=== PATIENT | male | born 1960 | race Caucasian/White ===

== ENCOUNTER 2021-06-11 07:19 | Outpatient (REF) | payer OTHER, SELFPAY ==
--- NOTE | ~2021-06-11 | XR_ITS ---
EXAMINATION: AP PELVIS AND RIGHT HIP. CLINICAL INFORMATION: Right hip pain. COMPARISON: None TECHNIQUE: AP pelvis. 2 views right hip. FINDINGS: PELVIS: There is a normal left hip joint space without bony erosive changes. There is mild periarticular spurring medial and laterally. There is severe loss of right hip joint space with bone on bone apposition and sclerosis with periarticular spurring. RIGHT HIP: AP and frog-leg views reveal moderate lateral periarticular spurring with sclerosis and mild subchondral cystic changes. There is severe loss of right hip joint space with mild flattening of the right anterolateral femoral head. No fracture identified. There is no dislocation. XR/XR pelvis 1-2V IMPRESSION: Severe right hip degenerative arthritic changes with subchondral cystic changes and sclerosis. There is periarticular spurring left hip joint space without bony erosive changes. The joint space is somewhat maintained, normal. There is no visible acute fracture or dislocation involving the AP pelvis. The SI joints are symmetrical.
--- NOTE | ~2021-06-11 | XR_ITS ---
EXAMINATION: AP PELVIS AND RIGHT HIP. CLINICAL INFORMATION: Right hip pain. COMPARISON: None TECHNIQUE: AP pelvis. 2 views right hip. FINDINGS: PELVIS: There is a normal left hip joint space without bony erosive changes. There is mild periarticular spurring medial and laterally. There is severe loss of right hip joint space with bone on bone apposition and sclerosis with periarticular spurring. RIGHT HIP: AP and frog-leg views reveal moderate lateral periarticular spurring with sclerosis and mild subchondral cystic changes. There is severe loss of right hip joint space with mild flattening of the right anterolateral femoral head. No fracture identified. There is no dislocation. XR/XR hip RT min 2V IMPRESSION: Severe right hip degenerative arthritic changes with subchondral cystic changes and sclerosis. There is periarticular spurring left hip joint space without bony erosive changes. The joint space is somewhat maintained, normal. There is no visible acute fracture or dislocation involving the AP pelvis. The SI joints are symmetrical.
== END 2021-06-11 07:20 | disposition home or self-care (01) ==
LOC: HO.HOSX 07:19
PROVIDERS: Visit Provider Physician Assistant
DX: M16.11 Unilateral primary osteoarthritis, right hip (principal)
CPT/HCPCS: 72170; 73502

== ENCOUNTER 2021-06-27 15:18 | Outpatient (REF) | payer OTHER, SELFPAY | END 2021-06-27 15:19 | disposition home or self-care (01) | LOC: HO.CT 15:18 | PROVIDERS: PCP Physician Assistant; Visit Provider Physician Assistant Medical | DX: Z13.89 Encounter for screening for other disorder (principal) ==

== ENCOUNTER 2021-10-03 13:54 | Outpatient (REF) | payer OTHER, SELFPAY ==
[2021-10-03 14:13] LABS: MANUAL DIFF FLAG NO
[2021-10-03 14:28] LABS: Basophils Percent Auto 0.4 % (0-2); Eosinophils Absolute Auto 0.2 X10*3/uL (0.0-0.4); Eosinophils Percent Auto 3.5 % (0-4); Hematocrit 43.3 % (42.0-52.0); Hemoglobin 15.4 g/dl (14.0-18.0); Imm Gran Abs Auto 0.02 X10*3/uL (0.00-0.03); Imm Gran Pct Auto 0.4 % (0.0-0.4); Lymphocytes Absolute Auto 1.6 X10*3/uL (1.2-4.9); Lymphocytes Percent Auto 27.7 % (20-40); Mean Corpuscular HGB Conc 35.6 g/dl (31.0-36.0); Mean Corpuscular Hemoglobin 32.2 pg (27.0-33.0); Mean Corpuscular Volume 90.6 fL (80.0-98.0); Mean Platelet Volume 10.2 fL (9.4-12.4); Monocytes Absolute Auto 0.6 X10*3/uL (0.1-1.2); Monocytes Percent Auto 10.5 % (2-11); Neutrophils Absolute Auto 3.3 x10*3/uL (2.0-8.3); Neutrophils Percent Auto 57.5 % (45-73); Platelet Count 153 X10*3/uL (160-400); Red Blood Count 4.78 X10*6/uL (4.60-5.80); Red Cell Distribution Width 12.7 % (11.0-16.0); White Blood Count 5.6 X10*3/uL (4.8-10.8)
[2021-10-03 14:44] LABS: Estimated Average Glucose 103 mg/dL; Hemoglobin A1c % 5.2 %
[2021-10-03 15:02] LABS: Alanine Aminotransferase 21 U/L (0-40); Albumin Level 4.4 g/dL (3.5-5.0); Alkaline Phosphatase 55 U/L (39-117); Anion Gap 14 (12-20); Aspartate Amino Transferase 19 U/L (5-37); Bilirubin Total 0.8 mg/dL (0.0-1.0); Blood Urea Nitrogen 11 mg/dL (9-16); Calcium 9.4 mg/dL (8.4-10.2); Carbon Dioxide 27 mmol/L (22-29); Chloride 102 mmol/L (96-108); Cholesterol 181 mg/dL; Estimated Glomerular Filt Rate > 60; Glucose Fasting 110 mg/dL (60-99); HDL Cholesterol 36 mg/dL; LDL Cholesterol Calculated 108 mg/dl; Potassium 4.6 mmol/L (3.3-5.1); Sodium 138 mmol/L (135-145); Total Protein 7.1 g/dL (6.5-8.0); Triglycerides 185 mg/dL
[2021-10-03 15:23] LABS: TSH reflex Free T4 0.91 uIU/mL (0.32-4.0)
== END 2021-10-03 13:55 | disposition home or self-care (01) ==
LOC: HO.LAB 13:54
PROVIDERS: PCP Physician Assistant; Visit Provider Physician Assistant
DX: I10 Essential (primary) hypertension (principal); I48.91 Unspecified atrial fibrillation
CPT/HCPCS: 36415; 80053; 80061; 83036; 84443; 85025

== ENCOUNTER 2022-02-09 12:47 | Outpatient (REF) | payer OTHER, SELFPAY | END 2022-02-09 12:48 | disposition home or self-care (01) | LOC: HO.LAB 12:47 | PROVIDERS: PCP Physician Assistant; Visit Provider Physician Assistant | DX: Z13.89 Encounter for screening for other disorder (principal) ==

== ENCOUNTER 2022-02-10 13:03 | Outpatient (REF) | payer OTHER, SELFPAY ==
[2022-02-10 14:50] LABS: Microalbumin Urine < 5.0 mg/L
== END 2022-02-10 13:04 | disposition home or self-care (01) ==
LOC: HO.LAB 13:03
PROVIDERS: PCP Physician Assistant; Visit Provider Physician Assistant
DX: I10 Essential (primary) hypertension (principal)
CPT/HCPCS: 82043

== ENCOUNTER 2022-05-05 14:47 | Outpatient (REF) | payer OTHER, SELFPAY ==
[2022-05-09 00:39] LABS: Cotinine, U <2 ng/mL; Nicotine, U <2 ng/mL
== END 2022-05-05 14:48 | disposition home or self-care (01) ==
LOC: HO.LAB 14:47
PROVIDERS: PCP Physician Assistant; Visit Provider Physician Assistant
DX: Z87.891 Personal history of nicotine dependence (principal)
CPT/HCPCS: 80323

== ENCOUNTER 2022-09-08 11:18 | Outpatient (REF) | payer OTHER, SELFPAY ==
--- NOTE | 2022-09-08 11:28 | ECG_ITS ---
Test Reason : HX AFIB Blood Pressure : / mmHG Vent. Rate : 120 BPM Atrial Rate : 000 BPM P-R Int : 000 ms QRS Dur : 082 ms QT Int : 288 ms P-R-T Axes : 000 -77 020 degrees QTc Int : 407 ms Atrial fibrillation with rapid ventricular response with premature ventricular or aberrantly conducted complexes Left axis deviation Nonspecific ST and T wave abnormality Abnormal ECG When compared with ECG of 31-MAR-2017 12:38, Atrial fibrillation has replaced Sinus rhythm Vent. rate has increased BY 40 BPM T wave inversion no longer evident in Lateral leads Referred By: Zainab Quiles Electronically Signed By:Zen Lazo
[2022-09-08 11:31] LABS: MANUAL DIFF FLAG NO
[2022-09-08 11:51] LABS: Basophils Percent Auto 0.3 % (0-2); Eosinophils Absolute Auto 0.2 X10*3/uL (0.0-0.4); Eosinophils Percent Auto 3.9 % (0-4); Hematocrit 44.8 % (42.0-52.0); Hemoglobin 15.8 g/dl (14.0-18.0); Imm Gran Abs Auto 0.03 X10*3/uL (0.00-0.03); Imm Gran Pct Auto 0.5 % (0.0-0.4); Lymphocytes Absolute Auto 1.9 X10*3/uL (1.2-4.9); Lymphocytes Percent Auto 31.1 % (20-40); Mean Corpuscular HGB Conc 35.3 g/dl (31.0-36.0); Mean Corpuscular Hemoglobin 31.9 pg (27.0-33.0); Mean Corpuscular Volume 90.5 fL (80.0-98.0); Mean Platelet Volume 11.1 fL (9.4-12.4); Monocytes Absolute Auto 0.6 X10*3/uL (0.1-1.2); Monocytes Percent Auto 10.4 % (2-11); Neutrophils Absolute Auto 3.2 x10*3/uL (2.0-8.3); Neutrophils Percent Auto 53.8 % (45-73); Platelet Count 157 X10*3/uL (160-400); Red Blood Count 4.95 X10*6/uL (4.60-5.80); Red Cell Distribution Width 12.5 % (11.0-16.0); White Blood Count 5.9 X10*3/uL (4.8-10.8)
[2022-09-08 12:45] LABS: Alanine Aminotransferase 26 U/L (0-40); Albumin Level 4.2 g/dL (3.5-5.0); Alkaline Phosphatase 63 U/L (39-117); Anion Gap 14 (12-20); Aspartate Amino Transferase 19 U/L (5-37); Bilirubin Total 0.8 mg/dL (0.0-1.0); Blood Urea Nitrogen 16 mg/dL (9-16); Calcium 9.7 mg/dL (8.4-10.2); Carbon Dioxide 27 mmol/L (22-29); Chloride 104 mmol/L (96-108); Estimated Glomerular Filt Rate > 60; Glucose Fasting 119 mg/dL (60-99); Potassium 4.4 mmol/L (3.3-5.1); Sodium 141 mmol/L (135-145); Total Protein 7.1 g/dL (6.5-8.0)
== END 2022-09-08 11:19 | disposition home or self-care (01) ==
LOC: HO.LAB 11:18
PROVIDERS: PCP Physician Assistant; Visit Provider Nurse Practitioner Family
DX: I10 Essential (primary) hypertension (principal); I48.91 Unspecified atrial fibrillation; Z13.0 Encounter for screening for diseases of the blood and blood-forming organs and certain disorders involving the immune mechanism
CPT/HCPCS: 36415; 80053; 85025; 93005

== ENCOUNTER 2022-09-25 13:02 | Emergency (ER) | payer OTHER, SELFPAY ==
--- NOTE | ~2022-09-25 | CT_ITS ---
EXAMINATION: CT HEAD WITHOUT CONTRAST CLINICAL INFORMATION: Worsening headache COMPARISON: None available. TECHNIQUE: Contiguous axial imaging was performed from the skull base to vertex without intravenous administration of contrast. This CT examination was performed using dose optimization techniques as appropriate, variously including the following: *Automated exposure control *Adjustment of mA and/or kV according to patient size (this includes techniques or standardized protocols for targeted exams where dose is matched to indication/reason for exam; i.e. extremities or head) *Use of iterative reconstruction technique DLP: 727 mGy-cm FINDINGS: No acute findings. The brain parenchyma has normal attenuation with well-preserved jama-white matter differentiation. No evidence of an acute major vascular territory infarction. No intracranial hemorrhage, extra-axial surface collection, focal mass effect or midline shift. Mild parenchymal volume loss with commensurate prominence of ventricles and sulci; no hydrocephalus. The brainstem and cerebellum are unremarkable. The cerebellar tonsils are in normal position. The calvarium is intact. The visualized paranasal sinuses, mastoid air cells and middle ear cavities are well aerated. 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 Also, there is an old-appearing focal dehiscence of the floor of the right orbit within which there is protrusion of some of the extraconal fat. Otherwise, the orbits, globes and temporomandibular joints are unremarkable. CT/CT head/brain wo IV con IMPRESSION: * No intracranial hemorrhage or other acute intracranial pathology. * There appear to be old defects in the medial and inferior [place] of the right orbit. Correlate for a history of remote trauma.
--- NOTE | 2022-09-25 13:04 | ECG_ITS ---
Test Reason : A FIB Blood Pressure : / mmHG Vent. Rate : 105 BPM Atrial Rate : 000 BPM P-R Int : 000 ms QRS Dur : 086 ms QT Int : 324 ms P-R-T Axes : 000 -66 045 degrees QTc Int : 428 ms Atrial fibrillation with rapid ventricular response Left axis deviation Abnormal ECG When compared with ECG of 08-SEP-2022 11:27, Nonspecific T wave abnormality no longer evident in Inferior leads Referred By: Luly Garza Electronically Signed By:SANTIAGO AWAN MD
--- NOTE | 2022-09-25 13:50 | ED_ITS ---
HPI - Arrhythmia/Palpitations General Chief Complaint: Headache Stated Complaint: quest afib headache Related Data Previous Rx's Medication Instructions Recorded acetaminophen 500 mg capsule 500 mg PO Q6H fever 30 days #120 09/08/22 caps baclofen 20 mg tablet 20 mg PO DAILY 30 days #30 tabs 09/08/22 apixaban 5 mg tablet (Eliquis) 5 mg PO BID 90 days #180 tabs 09/28/22 ezqlbumyuq-rbpyuxgythpyh-hrutcqfi 1 cap PO TID PRN pain 5 days #15 09/28/22 50 mg-325 mg-40 mg capsule caps lisinopril 10 mg tablet 10 mg PO DAILY 90 days #90 tabs 09/28/22 magnesium oxide 250 mg PO BID 30 days #60 tabs 09/28/22 metoprolol succinate 200 mg 200 mg PO DAILY 30 days #30 tabs 09/28/22 tablet,extended release 24 hr riboflavin (vitamin B2) 50 mg 50 mg PO DAILY 30 days #30 tabs 09/28/22 tablet tramadol 50 mg tablet 50 mg PO BID PRN pain 15 days #30 09/28/22 tabs sumatriptan succinate 100 mg tablet 100 mg PO .COMPLEX 30 days #10 tabs 10/01/22 Allergies Allergy/AdvReac Type Severity Reaction Status Date / Time No Known Allergies Allergy Verified 09/28/22 13:14 [No Known Allergies*] [facility] Past Medical History Medical History Afib (~2017) History of pulmonary embolism (~2017) HTN (hypertension) Osteoarthritis of right hip Personal history of nicotine dependence Surgical History History of cardioversion History of right hip replacement Family History Family History Father Family history of dementia Mother Breast cancer Social History Social History Housing: Apartment Alcohol intake: current Alcohol intake frequency: a few times a week Alcohol type: beer Patient Tobacco Use Status: Former Tobacco user Tobacco use type: Cigarette Cigarette Packs Per Day: 0.5 Cigarettes Per Day: 10 e-Cigarette/Vaping Use: Never Used Second Hand Smoke Exposure: No service: No Current occupational status: employed Current occupation: [employer] Current occupational exposures/hazards: No Cognitive needs: No Hearing needs: No Vision needs: Yes Physical Exam Vital Signs: Vital Signs: Last Vital Signs Pulse 85 09/25/22 14:29 Resp 16 09/25/22 14:29 BP 114/66 09/25/22 14:29 Pulse Ox 97 09/25/22 14:29 O2 Del Method Room Air 09/25/22 14:29 BMI result Body Mass Index 29.3 Course Course Course Narrative: RME: 61 yo male w/ PMHx migraine ALMARAZ, obesity, HTN, afib on Eliquis, and OA c/o 2-3 unilateral temporal headaches daily worsening x3 wks, outpt head CT ordered by PCP for 2022. Ran out of his sumatriptan for the month. No vision changes, blurred vision, N/V. Does not have a neurologist. EKG, labs, head CT Full HPI, ROS and PE to be performed by primary ED provider. Medical Decision Making Lab Data 09/25/22 15:14 09/25/22 15:14 Labs: Lab Results 09/25/22 09/25/22 09/25/22 Range/Units 15:14 15:14 15:14 WBC 6.6 (4.8-10.8) X10*3/uL RBC 4.94 (4.60-5.80) X10*6/uL Hgb 15.4 (14.0-18.0) g/dl Hct 44.1 (42.0-52.0) % MCV 89.3 (80.0-98.0) fL MCH 31.2 (27.0-33.0) pg MCHC 34.9 (31.0-36.0) g/dl RDW 12.8 (11.0-16.0) % Plt Count 157 L (160-400) X10*3/uL MPV 10.4 (9.4-12.4) fL Immature Gran % (Auto) 0.6 H (0.0-0.4) % Neut % (Auto) 61.8 (45-73) % Lymph % (Auto) 25.5 (20-40) % [place] % (Auto) 8.6 (2-11) % Eos % (Auto) 3.3 (0-4) % Baso % (Auto) 0.2 (0-2) % Lymph # (Auto) 1.7 (1.2-4.9) X10*3/uL [place] # (Auto) 0.6 (0.1-1.2) X10*3/uL Eos # (Auto) 0.2 (0.0-0.4) X10*3/uL Baso # (Auto) 0.0 (0.0-0.2) X10*3/uL Abs Immat Gran (auto) 0.04 H (0.00-0.03) X10*3/uL Absolute Neuts (auto) 4.1 (2.0-8.3) x10*3/uL Absolute Nucleated RBC 0.000 (0.0-0.012) X10*3/uL Nucleated RBC % (auto) 0.0 (0.0-0.2) /100WBC PT 11.9 (10.0-13.1) SEC INR 1.0 (0.9-1.1) Sodium 139 (135-145) mmol/L Potassium 4.4 (3.3-5.1) mmol/L Chloride 104 (96-108) mmol/L Carbon Dioxide 27 (22-29) mmol/L Anion Gap 12 (12-20) BUN 14 (9-16) mg/dL Creatinine 0.91 (0.5-1.4) mg/dL Estim Creat Clear Calc 97.8 Estimated GFR > 60 Random Glucose 103 (60-115) mg/dL Calcium 9.9 (8.4-10.2) mg/dL Discharge Plan Discharge Clinical Impression: Headache Patient Disposition: Elopement Prescriptions: No Action acetaminophen 500 mg capsule 500 mg PO Q6H 30 Days Qty: 120 1RF baclofen 20 mg tablet 20 mg PO DAILY 30 Days Qty: 30 3RF sumatriptan succinate 100 mg tablet 100 mg PO .COMPLEX 30 Days Qty: 10 0RF Rx Instructions: 100 mg orally; magnesium oxide 250 mg magnesium tablet 250 mg PO BID 30 Days Qty: 60 1RF riboflavin (vitamin B2) 50 mg tablet 50 mg PO DAILY 30 Days Qty: 30 1RF tramadol 50 mg tablet 50 mg PO BID PRN (Reason: pain) 15 Days Qty: 30 1RF lisinopril 10 mg tablet 10 mg PO DAILY 90 Days Qty: 90 2RF Eliquis 5 mg tablet 5 mg PO BID 90 Days Qty: 180 2RF sgkpqrpnlb-nemwqrvqbhmkq-erle 50-325-40 mg capsule 1 cap PO TID PRN (Reason: pain) 5 Days Qty: 15 0RF metoprolol succinate 200 mg tablet extended release 24 hr 200 mg PO DAILY 30 Days Qty: 30 1RF Discharge Date/Time: 09/25/22 18:13
[2022-09-25 14:29] VITALS: BP 114/66; PULSE 85; RESP 16; O2SAT 97; BMI 29.3
[2022-09-25 15:18] LABS: MANUAL DIFF FLAG NO
[2022-09-25 15:20] LABS: Basophils Percent Auto 0.2 % (0-2); Eosinophils Absolute Auto 0.2 X10*3/uL (0.0-0.4); Eosinophils Percent Auto 3.3 % (0-4); Hematocrit 44.1 % (42.0-52.0); Hemoglobin 15.4 g/dl (14.0-18.0); Imm Gran Abs Auto 0.04 X10*3/uL (0.00-0.03); Imm Gran Pct Auto 0.6 % (0.0-0.4); Lymphocytes Absolute Auto 1.7 X10*3/uL (1.2-4.9); Lymphocytes Percent Auto 25.5 % (20-40); Mean Corpuscular HGB Conc 34.9 g/dl (31.0-36.0); Mean Corpuscular Hemoglobin 31.2 pg (27.0-33.0); Mean Corpuscular Volume 89.3 fL (80.0-98.0); Mean Platelet Volume 10.4 fL (9.4-12.4); Monocytes Absolute Auto 0.6 X10*3/uL (0.1-1.2); Monocytes Percent Auto 8.6 % (2-11); Neutrophils Absolute Auto 4.1 x10*3/uL (2.0-8.3); Neutrophils Percent Auto 61.8 % (45-73); Platelet Count 157 X10*3/uL (160-400); Red Blood Count 4.94 X10*6/uL (4.60-5.80); Red Cell Distribution Width 12.8 % (11.0-16.0); White Blood Count 6.6 X10*3/uL (4.8-10.8)
[2022-09-25 15:25] LABS: Prothrombin Time 11.9 SEC (10.0-13.1)
[2022-09-25 15:33] LABS: Anion Gap 12 (12-20); Blood Urea Nitrogen 14 mg/dL (9-16); Calcium 9.9 mg/dL (8.4-10.2); Carbon Dioxide 27 mmol/L (22-29); Chloride 104 mmol/L (96-108); Creatinine Clr Calc Pharmacy 97.8; Estimated Glomerular Filt Rate > 60; Glucose Random 103 mg/dL (60-115); Potassium 4.4 mmol/L (3.3-5.1); Sodium 139 mmol/L (135-145)
== END 2022-09-25 18:13 | disposition left against medical advice (07) ==
PROVIDERS: Physician Assistant; Emergency Provider Emergency Medicine; PCP Physician Assistant
DX: R51.9 Headache, unspecified (principal); I48.91 Unspecified atrial fibrillation; Z79.01 Long term (current) use of anticoagulants; Z79.899 Other long term (current) drug therapy; Z87.891 Personal history of nicotine dependence
CPT/HCPCS: 36415; 70450; 80048; 85025; 85610; 93005; 99283; 99284

== ENCOUNTER → 2022-09-25 13:04 | Outpatient (BNV) | payer OTHER, SELFPAY | PROVIDERS: Emergency Provider Emergency Medicine; PCP Physician Assistant; Visit Provider Internal Medicine Cardiovascular Disease | DX: I48.91 Unspecified atrial fibrillation (principal) | CPT/HCPCS: 93010 ==

== ENCOUNTER 2022-09-28 13:12 | Outpatient (AMB) | payer OTHER, SELFPAY ==
[2022-09-28 13:14] VITALS: BP 110/90; PULSE 90; O2SAT 97; BMI 30.8
--- NOTE | 2022-09-28 13:14 | A.OFFPC_ITS ---
Vital Signs 09/28/22 13:14 Height 5 ft 11 in Weight 221 lb BMI 30.8 BP 110/90 H Blood Pressure Location Lt brachial Position Sitting Pulse 90 Pulse Source Pulse Oximeter Pulse Oximetry (%) 97 Oxygen Delivery Method Room Air Intake Visit Reasons: follow up/ severe migraines Web Site Specialist Required: No Accompanied by: Self / Same As Patient Allergies No Known Allergies [No Known Allergies*] Allergy (Verified 09/28/22 13:14) Medication List - Last Reconciled 09/28/22 by Jose Campuzano PA-C acetaminophen 500 mg PO Q6H 30 days apixaban (Eliquis) 5 mg PO BID baclofen 20 mg PO DAILY 30 days lisinopril 10 mg PO DAILY 90 days metoprolol succinate ER 200 mg PO DAILY 30 days sumatriptan succinate take 1 tab at onset of headache; if no relief may repeat 1 tab after at least 2 hrs; max = 4 tabs/24 hr PO tramadol 50 mg PO BID PRN 15 days Tobacco use date assessed: 09/28/22 Dental Screening Dental Screen Date: 09/28/22 Did you have a dental visit in the last 12 months?: Yes Did you have a dental problem in the last 6 months where you did not have access to dental care?: No Was dental information given to patient?: Patient has dentist HPI follow up/ severe migraines HPI Details Patient is a 61-year-old male here today for follow-up visit. Patient has a past medical history significant for hypertension, AFib, tobacco dependency, right hip osteoarthritis status post total arthroplasty. At last visit he was seen and discussed migraines. Was started on sumatriptan which has been helpful reducing the length of his migraines though continue to be frequent.. He reports a migraines have been evident over the last 4 weeks. Has been on higher doses of sumatriptan. He reports when he gets head pain on at almost every day basis that last 2-3 hours and are usually unilateral run his right orbit and causes his eye to water. Unfortunately continues to smoke 3-4 cigarettes per day No auras associated with headaches. Does report sensitive to light and sound. He reports using cool compress and drinking coffee is helpful. [facility] Medical History Afib (~2016) History of pulmonary embolism (~2017) HTN (hypertension) Osteoarthritis of right hip Personal history of nicotine dependence Surgical History History of cardioversion History of right hip replacement Family History Father Family history of dementia Mother Breast cancer Social History Housing: Apartment Alcohol intake: current Alcohol intake frequency: a few times a week Alcohol type: beer Patient Tobacco Use Status: Former Tobacco user Tobacco use type: Cigarette Cigarette Packs Per Day: 0.5 Cigarettes Per Day: 10 e-Cigarette/Vaping Use: Never Used Second Hand Smoke Exposure: No service: No Current occupational status: employed Current occupation: [employer] Current occupational exposures/hazards: No Cognitive needs: No Hearing needs: No Vision needs: Yes Questionnaire Thrive Questionnaire Date Thrive assessed: 07/29/22 I am a: Patient What is your living situation today?: I have a steady place to live Within the past 12 months, did the food you bought not last and you didn't have the money to get more?: Never true Within the past 12 months, did you worry whether your food would run out before you got money to buy more?: Never true Do you have trouble paying for medicines?: No Do you have trouble getting transportation to medical appointments?: No Do you have trouble paying your heating and electricity bill?: No Do you have trouble taking care of your child, family member or friend?: No Do you have trouble with day-to-day activities such as bathing, preparing meals, shopping, managing finances, etc.?: No Are you currently unemployed and looking for a job?: No Are you interested in more education?: No Please select the resources that you would like help with: None Currently or been in a relationship where the following occur: no concerns reported AUDIT C Alcohol Use Questionnaire (AUDIT-C) 1. How often do you have a drink containing alcohol?: Monthly or less 2. How many drinks containing alcohol do you have on a typical day when you are drinking?: 1 or 2 3. How often do you have six or more drinks on one occasion?: Never Total Score: 1 ZAC-7 AMB Questionnaire ZAC-7 Date ZAC - 7 assessed: 09/28/22 Feeling nervous, anxious, or on edge: 0 = Not at all Not being able to stop or control worryin = Not at all Worrying too much about different things: 0 = Not at all Trouble relaxin = Not at all Being so restless that it is hard to sit still: 0 = Not at all Becoming easily annoyed or irritable: 0 = Not at all Feeling afraid as if something awful might happen: 0 = Not at all Total ZAC-7 score (0-4 normal; 5-9 mild; 10-14 moderate; 15-21 severe): 0 Source: Developed by Drs. Drew Trent, Skylar Fitzgerald, Moses Fields and colleagues, with an educational richie from [employer]. Review of Systems Const Reports headache(s) Eyes Denies loss of vision ENT Denies vertigo, Denies dizziness, Reports headache(s) and Denies sore throat Card Denies chest pain, Denies leg edema and Denies lightheadedness Resp Denies cough, Denies hemoptysis and Denies wheezing GI Denies abdominal pain, Denies melena, Denies constipation, Denies diarrhea and Denies vomiting Denies dysuria, Denies urinary frequency and Denies urinary urgency Musc Denies arthralgias, Denies joint swelling, Denies numbness and Denies tingling Neuro Denies Abnormal speech present, Denies behavioral changes, Denies vertigo, Denies dizziness, Reports headache(s), Denies loss of vision, Denies memory loss, Denies numbness and Denies tingling Psych Denies anxiety, Denies behavioral changes, Denies depression, Denies memory loss and Denies panic attacks [place]/Lymph Denies easy bleeding and Denies easy bruising Aller/Immun Denies wheezing Physical exam (Primary Care) Vital Signs: Last Vital Signs Pulse 90 09/28/22 13:14 BP 110/90 H 09/28/22 13:14 Pulse Ox 97 09/28/22 13:14 Oxygen Delivery Method Room Air 09/28/22 13:14 BMI result Body Mass Index 30.8 Tobacco/Smoking Status: Tobacco use Status Tobacco use date assessed 09/28/22 09/28/22 13:21 Patient Tobacco Use Status Former Tobacco user 09/28/22 13:21 Tobacco use type Cigarette 09/28/22 13:21 e-Cigarette/Vaping Use Never Used 09/28/22 13:21 Thrive Assessment: Date of Thrive Assessment Date Thrive assessed 07/29/22 09/28/22 13:21 Currently or been in a relationship where the following occur: no concerns reported Const General: healthy appearing, no acute distress, alert and awake Nutritional Appearance: well nourished Orientation/consciousness: oriented to person, oriented to place and oriented to time HENMT Ears: TM's normal bilaterally General nose exam: Normal nasal mucous membranes and turbinates present Eyes Conjunctivae: conjunctivae normal Sclerae: sclerae normal Pupils: Equal, round and reactive pupils present Neck Neck: Yes no lymphadenopathy and Yes no JVD Thyroid: Thyroid normal Carotids: no bruits Resp Effort & Inspection: normal respiratory effort and not tachypneic Auscultation: no crackles, no rales, no rhonchi and no wheezes Cardio Rate: regular rate Rhythm: regular rhythm Heart sounds: no murmurs and normal S1 and S2 GI Palpation (GI): Soft to palpation, nontender, no hepatomegaly and no splenomegaly Auscultation: normal bowel sounds Skin General skin exam: no rashes or lesions noted and dry skin Neuro General: oriented to person, oriented to place and oriented to time Cranial nerves: Yes Equal, round and reactive pupils present Speech: No Abnormal speech present Gait exam (Neuro): Normal gait present Motor exam (neuro): no tremor noted Extrem Right upper extremity: full ROM Left upper extremity: full ROM Right lower extremity: full ROM; no edema Left lower extremity: full ROM; no edema Psych Mental Status: mental status grossly normal Speech and movement: Normal speech and movement present Affect: normal affect Attitude: cooperative Thought process: Normal thought process present Assessment and Plan Assessment & Plan (1) Cluster headaches: Code(s): G44.009 - Cluster headache syndrome, unspecified, not intractable Qualifiers: Headache chronicity pattern: episodic headache Intractability: not intractable Qualified Code(s): G44.019 - Episodic cluster headache, not intractable Plan: Patient's signs symptoms are concerning for cluster headaches. He reports the headaches are very severe. Sumatriptan not very effective and only has limited supply due to insurance. He reports cool compress and caffeine helpful. Will try to increase his sumatriptan dose and supply with Fioricet to use during attacks. CT head recently without any hemorrhage or masses. Does have right orbital deformity on see this seems chronic. Will refer to Neurology for evaluation Orders: Orders Microalbumin, Random (w Creat) Today I10 - Essential (primary) hypertension Prostate Specific Antigen Scr Today I10 - Essential (primary) hypertension, Z12.5 - Encounter for screening for malignant neoplasm of prostate Comprehensive [place]. Panel Fast Today I48.91 - Unspecified atrial fibrillation Lipid Panel Today I48.91 - Unspecified atrial fibrillation Complete Blood Count no Diff Today I48.91 - Unspecified atrial fibrillation Referrals Neurology Referral G44.019 - Episodic cluster headache, not intractable Medications: New sumatriptan succinate take 1 tab at onset of headache; if no relief, may repeat 1 tab after at least 2 hrs; max = 2 tabs/24 hrs PO 30 days 10 tabs 0RF G44.019 - Episodic cluster headache, not intractable, I48.91 - Unspecified atrial fibrillation magnesium oxide 250 mg PO BID 30 days 60 tabs 1RF G44.019 - Episodic cluster headache, not intractable riboflavin (vitamin B2) 50 mg PO DAILY 30 days 30 tabs 1RF G44.019 - Episodic cluster headache, not intractable uuaocuallm-davvrsqjrhvnk-wvov 50-325-40 mg 1 cap PO TID 5 days PRN 15 caps 0RF pain G43.909 - Migraine, unspecified, not intractable, without status migrainosus, G44.019 - Episodic cluster headache, not intractable Changed From apixaban (Eliquis) 5 mg PO BID I48.91 - Unspecified atrial fibrillation To apixaban (Eliquis) 5 mg PO BID 90 days 180 tabs 2RF I48.91 - Unspecified atrial fibrillation Refilled tramadol 50 mg PO BID 15 days PRN 30 tabs 1RF pain M16.11 - Unilateral primary osteoarthritis, right hip lisinopril 10 mg PO DAILY 90 days 90 tabs 2RF I10 - Essential (primary) hypertension metoprolol succinate ER 200 mg PO DAILY 30 days 30 tabs 1RF I48.91 - Unspecified atrial fibrillation, M16.11 - Unilateral primary osteoarthritis, right hip Discontinued sumatriptan succinate Discontinued Reason: Doctor's Order take 1 tab at onset of headache; if no relief may repeat 1 tab after at least 2 hrs; max = 4 tabs/24 hr PO 9 tabs 3RF G43.909 - Migraine, unspecified, not intractable, without status migrainosus Coding Level of Care Code Est Pt Level 4 (55457) Diagnoses Cluster headaches G44.019 Headache chronicity pattern: episodic headache Intractability: not intractable
== END 2022-09-28 14:07 | disposition home or self-care (01) ==
PROVIDERS: PCP Physician Assistant; Visit Provider Physician Assistant
DX: G44.019 Episodic cluster headache, not intractable (principal)
CPT/HCPCS: 99214

== ENCOUNTER 2022-11-02 09:47 | Outpatient (AMB) | payer SELFPAY ==
--- NOTE | 2022-11-02 10:09 | A.OFFVIS_ITS ---
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 patient states I'm having headaches atleast 3 times a day and they are brutal. this started about a month ago when I had a blood clot in my heart and lung and it subsided but now they're back with a vengeance. Allergies No Known Allergies [No Known Allergies*] Allergy (Verified 11/02/22 10:16) Medication List - Last Reconciled 11/02/22 by IVAN Tran acetaminophen 500 mg PO Q6H 30 days apixaban (Eliquis) 5 mg PO BID 90 days baclofen 20 mg PO DAILY 30 days geafflewzp-cksaugptimspl-osym 50-325-40 mg 1 cap PO TID PRN 5 days lisinopril 10 mg PO DAILY 90 days magnesium oxide 250 mg PO BID 30 days metoprolol succinate ER 200 mg PO DAILY 30 days sumatriptan succinate 100 mg orally; 30 days tramadol 50 mg PO BID PRN 15 days PFSH Medical History Afib (~2017) History of pulmonary embolism (~2017) HTN (hypertension) Osteoarthritis of right hip Personal history of nicotine dependence Surgical History History of cardioversion History of right hip replacement Family History Father Family history of dementia Mother Breast cancer Social History Housing: Apartment Alcohol intake: current Alcohol intake frequency: a few times a week Alcohol type: beer Patient Tobacco Use Status: Former Tobacco user Tobacco use type: Cigarette Cigarette Packs Per Day: 0.5 Cigarettes Per Day: 10 e-Cigarette/Vaping Use: Never Used Second Hand Smoke Exposure: No service: No Current occupational status: employed Current occupation: [employer] Current occupational exposures/hazards: No Cognitive needs: No Hearing needs: No Vision needs: Yes Physical Exam Vital Signs: Last Vital Signs Pulse 86 11/02/22 10:10 BP 112/82 11/02/22 10:10 Pulse Ox 96 11/02/22 10:10 Oxygen Delivery Method Room Air 11/02/22 10:10 BMI result Body Mass Index 30.2 Assessment & Plan Assessment & Plan (1) Cluster headaches: Comment: likely familial- father had headache c/w CH Code(s): G44.009 - Cluster headache syndrome, unspecified, not intractable Qualifiers: Headache chronicity pattern: episodic headache Intractability: not intractable Qualified Code(s): G44.019 - Episodic cluster headache, not intractable Orders: Orders MR head/brain wo/w con 11/02/22 F17.200 - Nicotine dependence, unspecified, uncomplicated, G43.909 - Migraine, unspecified, not intractable, without status migrainosus, G44.009 - Cluster headache syndrome, unspecified, not intractable, I48.91 - Unspecified atrial fibrillation, R51.9 - Headache, unspecified, Z79.01 - custodial (current) use of anticoagulants MR angio head wo con 11/02/22 F17.200 - Nicotine dependence, unspecified, uncomplicated, G43.909 - Migraine, unspecified, not intractable, without status migrainosus, G44.009 - Cluster headache syndrome, unspecified, not intractable, I48.91 - Unspecified atrial fibrillation, R51.9 - Headache, unspecified, Z79.01 - custodial (current) use of anticoagulants Medications: New galcanezumab-gnlm (Emgality) (3 mL) 300 mg subcutaneously; 30 days 3 mL 6RF G44.009 - Cluster headache syndrome, unspecified, not intractable sumatriptan succinate max 12mg/day 6 mg (0.5 mL) subcut ONCE 30 days 15 mL 6RF G44.009 - Cluster headache syndrome, unspecified, not intractable Oxygen Home Use 12-15 lpm via non-rebreather mask x's 15-20 minutes prn Cluster attack. M tank and E tanks 12 ea 6RF G44.009 - Cluster headache syndrome, unspecified, not intractable riboflavin (vitamin B2) 400 mg PO DAILY 30 days 30 tabs 6RF Changed From sumatriptan succinate 100 mg orally; 30 days 10 tabs 0RF G44.019 - Episodic cluster headache, not intractable, I48.91 - Unspecified atrial fibrillation To sumatriptan succinate Max 3 tabs per day 100 mg PO Q2H 30 days PRN 30 tabs 4RF migraine headache G44.019 - Episodic cluster headache, not intractable, I48.91 - Unspecified atrial fibrillation Coding Diagnoses Cluster headaches G44.019 Headache chronicity pattern: episodic headache Intractability: not intractable
[2022-11-02 10:10] VITALS: BP 112/82; PULSE 86; O2SAT 96; BMI 30.2
--- NOTE | 2022-11-02 10:22 | A.OFFVIS_ITS ---
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 patient states I'm having headaches atleast 3 times a day and they are brutal. this started about a month ago when I had a blood clot in my heart and lung and it subsided but now they're back with a vengeance. Allergies No Known Allergies [No Known Allergies*] Allergy (Verified 11/02/22 10:16) Medication List - Last Reconciled 11/02/22 by IVAN Tran acetaminophen 500 mg PO Q6H 30 days apixaban (Eliquis) 5 mg PO BID 90 days baclofen 20 mg PO DAILY 30 days ukdcxdlygr-dxnvvbedphrvq-ujfo 50-325-40 mg 1 cap PO TID PRN 5 days lisinopril 10 mg PO DAILY 90 days magnesium oxide 250 mg PO BID 30 days metoprolol succinate ER 200 mg PO DAILY 30 days sumatriptan succinate 100 mg orally; 30 days tramadol 50 mg PO BID PRN 15 days HPI HPI Comments History of Present Illness Details Right-handed 61-yr-old male presents for new pt evaluation of headache disorder, specifically worsening headaches. Pt is accompanied by his partner Gail. He reports he had headaches about 5 years ago when he was initially dx'd w/ A- fib and PE's. Then these subsided. Then about 1.5 months ago the headaches have returned worse with a vengeance w/o known precipitating causes. Headache questionnaire: Previous work-up? Head CT: No intracranial hemorrhage or other acute intracranial pathology. There appear to be old defects in the medial and inferior yeboah of the right orbit.?Mild parenchymal volume loss with commensurate prominence of ventricles and sulci; no hydrocephalus. Typical headache characteristics: Prodrome symptoms? None Aura? None Location, quality, characteristics? Starts as a tingle in his lateral right eye socket or medial socket, and moves around the right eye, right frontal/temporal/maxillary regions. Sometimes a panging right posterior neck pain. It is a constant sharp pain. Has urge to hit his head. Pain intensity? 02/21 Associated symptoms? denies photophobia, phonophobia, N/V, paresthesias. Focal weakness, Parethesias, Autonomic s/s? right eye watery, right maxillary congestion. Unsure if he has facial weakness- states right eye opening ahs always been smaller. Denies any changes in sweating, facial redness, diplopia, speech changes. Postdrome? Afterwards he has right eye region/congregational sensitivity to touch. Triggers? Heat. No alcohol triggers- drinks about 1 beer a day. Any positional, valsalva, exertional, sexual activity triggers? Pain is worse when laying down- but not caused by laying down. Time of day? often 3pm and in the middle of the night Duration? 20-180 minutes Frequency? 2-3 per day every day x's the last 1.5 months How does headache impact your life? He is not able to be as physically active d/t the headaches. Current acute medication use/interventions: Sumatriptan 100mg tab- shortens the headache but does not help the pain- however he runs out. Previous acute medication use: Fioricet- did not help much Current preventative medication use: None Previous preventative medication use: None Non-pharmacological interventions: Ice Other history of headache disorder? Used to have migraine without aura- when much younger. History of musculoskeletal disorders or injury? arthritis- s/p Right hip THR in July 2022- notes headaches have made doing PT difficult. Back pain, leg cramping. No usual neck pain- except during headache attack. History of sleep disorder? Sleep varies. Has good days and bad days. Some snoring. History of respiratory disease? None. Pt is a current smoker. History of CV disease? a-fib- on Eliquis. HTN- well-controlled. History of coagulopathy? h/o PE History of endocrine or metabolic disease? none History of seizure? none History of GI disorder? none Other? denies any h/o addiction other than tobacco use. Family history of migraine or other headache disorder? Father had similar headache. siblings have headaches. [facility] Medical History Afib (~2016) History of pulmonary embolism (~2017) HTN (hypertension) Osteoarthritis of right hip Personal history of nicotine dependence Surgical History History of cardioversion History of right hip replacement Family History Father Family history of dementia Mother Breast cancer Social History Housing: Apartment Alcohol intake: current Alcohol intake frequency: a few times a week Alcohol type: beer Patient Tobacco Use Status: Former Tobacco user Tobacco use type: Cigarette Cigarette Packs Per Day: 0.5 Cigarettes Per Day: 10 e-Cigarette/Vaping Use: Never Used Second Hand Smoke Exposure: No service: No Current occupational status: employed Current occupation: [employer] Current occupational exposures/hazards: No Cognitive needs: No Hearing needs: No Vision needs: Yes Review of Systems Const Details: See scanned ROS form Physical Exam Vital Signs: Last Vital Signs Pulse 86 11/02/22 10:10 BP 112/82 11/02/22 10:10 Pulse Ox 96 11/02/22 10:10 Oxygen Delivery Method Room Air 11/02/22 10:10 BMI result Body Mass Index 30.2 Const Orientation/consciousness: patient oriented x3 HEENT Other: No palpable scalp tenderness. Head: Yes normocephalic Resp Effort & Inspection: normal respiratory effort and able to speak in complete sentences Neuro General: patient oriented x3 Cranial nerves: Yes CN's II-XII intact bilaterally (w/ exception of decreased right palpebral fissure and pupil) Cognition (Neuro): normal cognition Gait exam (Neuro): Antalgic gait present and Assistive device used (cane) Motor exam (neuro): 5/5 motor strength present throughout Deep tendon reflexes (DTR's): Right triceps reflex intensity grade: 2+, Left triceps reflex intensity grade: 2+, Rt Biceps (C5, C6): 2+, Left biceps reflex intensity grade: 2+, Right brachioradialis reflex intensity grade: 2+, Left brachioradialis reflex intensity grade: 2+, Right patellar reflex intensity grade: 2+ and Left patellar reflex intensity grade: 2+ Coordination: [id number] test normal and Romberg test negative Psych Appearance: grossly normal Mental Status: mental status grossly normal Speech and movement: Normal speech and movement present Affect: normal affect Attitude: cooperative Thought process: Normal thought process present Assessment & Plan Assessment & Plan (1) Worsening headaches: Code(s): R51.9 - Headache, unspecified (2) Cluster headaches: Comment: likely familial- father had headache c/w CH Code(s): G44.009 - Cluster headache syndrome, unspecified, not intractable Qualifiers: Headache chronicity pattern: episodic headache Intractability: not intractable Qualified Code(s): G44.019 - Episodic cluster headache, not intractable (3) Migraine headache: Code(s): G43.909 - Migraine, unspecified, not intractable, without status migrainosus Plan Pt advised to undergo brain/head MRI w/wo and MRA- to assess for secondary intracranial etiologies of right-sided side-locked headache w/ autonomic s/s. Future considerations: HST. For overall headache management: Discussed importance of good self-care, including but not limited to maintaining a healthy diet, adequate fluid intake, adequate sleep, and engaging in regular physical activity. For headache triggers: Track headaches. For acute headache treatment: Discussed importance of taking acute medications at the first sign of headache. Will refill Sumatriptan 100mg tabs- will give more liberal supply quantity while we initiate remainde rof tx plan. Start Sumatriptan 6mg sc inj- may repeat in 1 hr (max 12mg/day). Start Oxygen 12-15 lpm via non-rebreather mask x's 15-30 minutes at onset of cluster attack. Pt will need both M tanks and E tanks. Previous acute migraine medication trials: Sumatriptan 100mg tab- not fully effective. Acute migraine medication contraindications: None at this time For headache prevention medication: Discussed that preventative medications should be taken routinely as prescribed for best effect, it may take several weeks for full effect to take effect. Start Riboflavin 400mg qam Continue Magnesium 250mg bid. Start Emgality 300mg sc q month- stop when cluster attack ceases. Reviewed potential adverse effects of Emgality, including but not limited to injection site reactions. Previous migraine prevention medication trials: On Metoprolol 200mg qd- for HTn. Migraine prevention medication contraindications: I would avoid verapamil d/t a- fib dx and pt currently normotensive on high-dose metoprolol. Will f/u after review of studies, and follow-up in clinic in 3 months or sooner prn. Orders: Orders MR head/brain wo/w con Today F17.200 - Nicotine dependence, unspecified, uncomplicated, G43.909 - Migraine, unspecified, not intractable, without status migrainosus, G44.009 - Cluster headache syndrome, unspecified, not intractable, I48.91 - Unspecified atrial fibrillation, R51.9 - Headache, unspecified, Z79.01 - care home (current) use of anticoagulants MR angio head wo con Today F17.200 - Nicotine dependence, unspecified, uncomplicated, G43.909 - Migraine, unspecified, not intractable, without status migrainosus, G44.009 - Cluster headache syndrome, unspecified, not intractable, I48.91 - Unspecified atrial fibrillation, R51.9 - Headache, unspecified, Z79.01 - terminal carman (current) use of anticoagulants Medications: New galcanezumab-gnlm (Emgality) (3 mL) 300 mg subcutaneously; 30 days 3 mL 6RF G44.009 - Cluster headache syndrome, unspecified, not intractable sumatriptan succinate max 12mg/day 6 mg (0.5 mL) subcut ONCE 30 days 15 mL 6RF G44.009 - Cluster headache syndrome, unspecified, not intractable Oxygen Home Use 12-15 lpm via non-rebreather mask x's 15-20 minutes prn Cluster attack. M tank and E tanks 12 ea 6RF G44.009 - Cluster headache syndrome, unspecified, not intractable riboflavin (vitamin B2) 400 mg PO DAILY 30 days 30 tabs 6RF Changed From sumatriptan succinate 100 mg orally; 30 days 10 tabs 0RF G44.019 - Episodic cluster headache, not intractable, I48.91 - Unspecified atrial fibrillation To sumatriptan succinate Max 3 tabs per day 100 mg PO Q2H 30 days PRN 30 tabs 4RF migraine headache G44.019 - Episodic cluster headache, not intractable, I48.91 - Unspecified atrial fibrillation Coding Level of Care Code New Pt Level 4 (97913) Diagnoses Worsening headaches R51.9 Cluster headaches G44.019 Headache chronicity pattern: episodic headache Intractability: not intractable Migraine headache G43.909
[2022-11-02 10:26] VITALS: BMI 30.2
== END 2022-11-02 11:20 | disposition home or self-care (01) ==
PROVIDERS: PCP Physician Assistant; Visit Provider Nurse Practitioner Family
DX: R51.9 Headache, unspecified (principal); G44.019 Episodic cluster headache, not intractable; G43.909 Migraine, unspecified, not intractable, without status migrainosus
CPT/HCPCS: 99204

== ENCOUNTER → 2022-11-02 09:47 | Outpatient (BNVA) | payer OTHER, SELFPAY | PROVIDERS: PCP Physician Assistant; Visit Provider Nurse Practitioner Family ==

== ENCOUNTER 2022-12-10 09:19 | Outpatient (AMB) | payer MEDICAID, SELFPAY ==
--- NOTE | 2022-12-10 09:25 | A.OFFVIS_ITS ---
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 Intake Note: NPV Nurse Aide Required: No Accompanied by: Self / Same As Patient Allergies No Known Allergies [No Known Allergies*] Allergy (Verified 12/10/22 09:28) Medication List - Last Reconciled 12/10/22 by Sanjay Marcos MD acetaminophen 500 mg PO Q6H PRN 90 days apixaban (Eliquis) 5 mg PO BID 90 days baclofen 20 mg PO DAILY 30 days mvahvuknln-jzxmzkjyegwcz-oyvh 50-325-40 mg 1 cap PO TID PRN 5 days galcanezumab-gnlm (Emgality) 300 mg subcutaneously; 30 days lisinopril 10 mg PO DAILY 90 days magnesium oxide 250 mg PO BID 90 days metoprolol succinate ER 200 mg PO DAILY 90 days Oxygen Home Use 12-15 lpm via non-rebreather mask x's 15-20 minutes prn Cluster attack. M tank and E tanks riboflavin (vitamin B2) 400 mg PO DAILY 30 days sumatriptan succinate 6 mg (0.5 mL) subcut ONCE 30 days sumatriptan succinate 100 mg PO Q2H PRN 30 days tramadol 50 mg PO BID PRN 15 days HPI HPI Comments History of Present Illness Details Nic is here for consultation regarding atrial fibrillation. Previously going to [facility] but has not been seen recently. He it seems that he has had atrial fibrillation for the last few years. Per documentation, it seems that he underwent flutter ablation in 2017. Then he had episode of submassive pulmonary embolism in 2019. Then atrial fibrillation rapid rates as well as severe LV dysfunction. It seems he underwent CASANDRA but that showed dense smoke in the left atrial appendage and hence he did undergo any cardioversion. Subsequently, patient states he really did not have any follow-up although not entirely clear what happened. Any case, it seems he probably has been in atrial fibrillation for the last 3 years or so. Patient himself she generally okay. He does not really have any clear-cut chest pains or shortness of breath although does not do much because of hip issues. Rare palpitations. Otherwise, seems to be getting along fine. He is on rate control medications with high dose of beta-blockers. Also on Eliquis. [facility] Medical History (Updated 12/10/22 @ 09:49 by Sanjay Marcos MD) Personal history of nicotine dependence History of pulmonary embolism (~2017) HTN (hypertension) Osteoarthritis of right hip Afib (~2017) Surgical History (Updated 12/10/22 @ 09:49 by Sanjay Marcos MD) S/P ablation of atrial flutter History of right hip replacement History of cardioversion Family History Father Family history of dementia Mother Breast cancer Social History Housing: Apartment Alcohol intake: current Alcohol intake frequency: a few times a week Alcohol type: beer Patient Tobacco Use Status: Former Tobacco user Tobacco use type: Cigarette Cigarette Packs Per Day: 0.5 Cigarettes Per Day: 10 e-Cigarette/Vaping Use: Never Used Second Hand Smoke Exposure: No service: No Current occupational status: employed Current occupation: [employer] Current occupational exposures/hazards: No Cognitive needs: No Hearing needs: No Vision needs: Yes Review of Systems Const Denies chills, Denies daytime sleepiness, Denies fatigue, Denies fever(s), Denies frequent falls, Denies night sweats, Denies snoring, Denies weakness, Denies weight gain and Denies weight loss Eyes Denies loss of vision ENT Denies dizziness and Denies hearing loss Card Denies chest pain, Denies chest pain with activity, Denies syncope, Denies rapid heart rate, Denies edema, Denies claudication, Denies leg edema, Denies lighthea dedness, Denies palpitations, Denies dyspnea, Denies dyspnea on exertion and Denies orthopnea Resp Denies cough, Denies excessive phlegm production, Denies dyspnea, Denies dyspnea on exertion, Denies snoring and Denies wheezing GI Denies abdominal pain, Denies hematochezia, Denies change in bowel habits, Denies change in stool character, Denies heartburn, Denies nausea and Denies vomiting Denies hematuria, Denies dysuria and Denies urinary frequency Musc Denies arthralgias, Denies muscle weakness, Denies numbness and Denies tingling Skin/Breast Denies nail changes and Denies rash Neuro Denies Abnormal speech present, Denies dizziness, Denies syncope, Denies frequent falls, Denies loss of vision, Denies memory loss, Denies numbness, Denies tingling and Denies weakness Psych Denies depression and Denies memory loss Endo Denies fatigue and Denies palpitations Aller/Immun Denies wheezing Physical Exam Vital Signs: Last Vital Signs Pulse 86 12/10/22 09:26 BP 110/64 12/10/22 09:26 BMI result Body Mass Index 28.9 Const General: comfortable and no acute distress Orientation/consciousness: patient oriented x3 HEENT Other: Unremarkable Head: Yes normal to inspection Neck Neck: Yes normal visual inspection Chest Chest palpation & inspection: normal inspection of the chest Resp Auscultation: clear to auscultation bilaterally Cardio Palpation: normal PMI Heart sounds: S1 normal heart sound present, S2 normal heart sound present, no gallops, no murmurs and no rubs GI Palpation (GI): Soft to palpation Back/Spine/Pelvis Other: unremarkable Skin General skin exam: no rashes or lesions noted Neuro General: patient oriented x3 Speech: No Abnormal speech present Extrem General: Yes normal to inspection Psych Mental Status: mental status grossly normal Assessment & Plan Assessment & Plan (1) Persistent atrial fibrillation: Code(s): I48.19 - Other persistent atrial fibrillation (2) S/P ablation of atrial flutter: Code(s): Z98.890 - Other specified postprocedural states; Z86.79 - Personal history of other diseases of the circulatory system (3) Cardiomyopathy: Code(s): I42.9 - Cardiomyopathy, unspecified Qualifiers: Cardiomyopathy type: other Qualified Code(s): I42.8 - Other cardiomyopathies Plan Per [facility] documentation, LVEF has been as low as 15-25%. However, a more recent echocardiogram from [facility] 2021 shows LVEF of 50-55%. EKG from September this year shows atrial fibrillation rate of 105/Min. Another EKG from August with atrial fibrillation rate of 120/Min. Overall, suspect less than optimally controlled atrial fibrillation. He is on metoprolol ER 200 mg daily. Add digoxin to the regimen. He is already on Eliquis. We will get an echocardiogram to reassess LVEF. Holter monitor for average heart rates. Definitive plan to be decided we will cardiovert him again and refer for ablation or leave him on rate control, as previous [facility] appointments have been somewhat irregular. Follow-up in a few weeks time. Orders: Orders CA echo transthoracic complete Today I42.9 - Cardiomyopathy, unspecified ECG 3 day holter monitor Today I48.19 - Other persistent atrial fibrillation Medications: New digoxin (Digox) 125 mcg PO DAILY 90 tabs 3RF Coding Level of Care Code New Pt Level 4 (83684) Diagnoses Persistent atrial fibrillation I48.19 S/P ablation of atrial flutter Z98.890; Z86.79 Other cardiomyopathy I42.8 Cardiomyopathy type: other
[2022-12-10 09:26] VITALS: BP 110/64; PULSE 86; BMI 28.9
== END 2022-12-10 09:49 | disposition home or self-care (01) ==
PROVIDERS: PCP Physician Assistant; Visit Provider Internal Medicine
DX: I48.19 Other persistent atrial fibrillation (principal); Z98.890 Other specified postprocedural states; Z86.79 Personal history of other diseases of the circulatory system; I42.8 Other cardiomyopathies
CPT/HCPCS: 99204

== ENCOUNTER → 2022-12-10 09:19 | Outpatient (BNVA) | payer OTHER, SELFPAY | PROVIDERS: PCP Physician Assistant; Visit Provider Internal Medicine ==

== ENCOUNTER → 2023-01-07 13:52 | Outpatient (REF) | payer OTHER, SELFPAY ==
--- NOTE | 2023-01-07 13:57 | HM_ITS ---
* Total monitoring time 2 days. * Underlying rhythm is atrial fibrillation. Average ventricular rate 85/Min. Range 46 to 175/Min. * About 12% of the time, rate greater than 100/Min. * Occasional PVCs versus aberrant conduction. * No patient markers or events in diary. MTDD
--- NOTE | 2023-01-07 13:57 | CA_ITS ---
Transthoracic Echocardiogram Patient (Last, First, Middle): Nic Dan A Gender: Male Date of : 1960 Age: 62 Procedure Date: 01/07/2023 Procedure Type: Transthoracic Echocardiogram Location: OP Height: 182.88 cm Weight: 97.52 kg BSA: 2.20 m2 Heart Rate: bpm BP: 110 / 70 mmHg Brim Plater: REBECCA Referring MD: Sanjay Marcos MD Gill Box Tender: Antione Lucas MD Symptoms: I42.9 - Cardiomyopathy, unspecified Study Quality: Technically Difficult, contrast ECG Rhythm: Atrial Fibrillation Conclusions: - 1. Low normal LV ejection fraction 50-55% 2. Mildly dilated left atrium 3. Cardiac valvular Dopplers within normal limits 4. Mildly dilated ascending aorta at 4 cm Findings Procedure Information Contrast agent, definity, is being given per protocol without apparent complications. Left Ventricle Normal left ventricular cavity size. There is normal left ventricular wall thickness. The left ventricular systolic function is low normal. The visually estimated ejection fraction is between 50-55%. Diastolic function is indeterminate on the basis of available data. Right Ventricle The right ventricle was not well visualized. Atria The left atrium is mildly dilated. There is no evidence of interatrial shunt. The right atrium was not well visualized. Aortic Valve The aortic valve structure and function is likely normal. There is no aortic valve stenosis. There is no aortic valve regurgitation. Mitral Valve Likely normal mitral valve structure and function. There is trace mitral valve regurgitation. There is no mitral valve stenosis. Pulmonic Valve The pulmonic valve was not well visualized. Tricuspid Valve The tricuspid valve was not well visualized. Tricuspid regurgitation envelope is inadequate for calculation of right ventricular systolic pressure. Normal right atrial pressure. Great Vessels The pulmonary artery was not well visualized. There is mild dilatation of the ascending aorta. Venous The inferior vena cava is normal in size and collapses greater than 50% with inspiration. Pericardium/Pleural The pericardium was not well visualized. Prior Study Comparison Changes noted compared to prior study dated: 06/29/2017. LV systolic function has marginally improved Measurements 2D Linear Measurements IVSd: 0.92 0.6-0.9/0.6-1.0 cm LVIDd: 4.62 3.9-5.3/4.2-5.9 cm LVIDd Index: 2.10 2.4-3.2/2.2-3.1 cm/m2 LVIDs: 3.68 2.0-3.6 cm LVPWd: 1.20 0.7-1.1 cm LA Diam: 4.00 2.7-3.8/3.0-4.0 cm LAIDs Index: 1.82 1.5-2.3 cm/m2 LV Mass: 215.31 67-162/88-224 g LV Mass Index: 97.87 43-95/49-115 g/m2 LVOT Diam: 2.20 3.0+(-)1.3 cm 2D Systolic Function EF 4C: 56.00 >55% EF 2C: 49.80 >55% EF BiP: 53.50 >55% Mitral Valve MV Pk E: 0.63 MV Decel Time: 187.00 E'Lateral: 10.30 E'Medial: 8.51 E/E' Med: 7.30 E/E' Lat: 6.10 PHT: 55.00 MVA PHT: 4.00 Decel [place]: 3.60 Aortic Valve AoV Pk Vince: 0.96 AoV Pk Grad: 4.00 LVOT LVOT Pk Vince: 0.73 LVOT Pk Grad: 2.00 LVOT Diam: 2.20 LVOT Area: 3.80 Diastolic Function MV Pk E: 0.63 E'Medial: 8.51 E/E' Med: 7.30 E' Laterial: 10.30 E/E' Lat: 6.10 Right Ventricle TAPSE (mm): 10.60 TVS' Vince: 13.90 Tricuspid Valve RA Press: 3.00 Great Vessels Aorta Sinus of Valsalva: 3.83 2.0-3.5 cm Ao Asc: 4.00 2.1-3.4 cm Updated in Other Vendor System with Status of Final Antione Lucas MD electronically signed on 01/08/2023 4:03:53 PM with status of Final
== END ==
LOC: HO.CARD 13:52
PROVIDERS: PCP Physician Assistant; Visit Provider Internal Medicine
DX: I48.19 Other persistent atrial fibrillation (principal); I42.9 Cardiomyopathy, unspecified
CPT/HCPCS: 93242; 93306; Q9957

== ENCOUNTER → 2023-01-07 13:57 | Outpatient (BNV) | payer OTHER, SELFPAY | PROVIDERS: PCP Physician Assistant; Visit Provider Internal Medicine Cardiovascular Disease | DX: I48.19 Other persistent atrial fibrillation (principal) | CPT/HCPCS: 93244; 93306 ==

== ENCOUNTER → 2023-01-13 13:40 | Outpatient (BNVA) | payer OTHER, SELFPAY | PROVIDERS: PCP Physician Assistant; Visit Provider Internal Medicine ==

== ENCOUNTER 2023-01-28 14:45 | Outpatient (AMB) | payer OTHER, SELFPAY ==
[2023-01-28 14:53] VITALS: BP 110/68; PULSE 64; BMI 30.4
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
== END 2023-01-28 15:19 | disposition home or self-care (01) ==
PROVIDERS: PCP Physician Assistant; Visit Provider Internal Medicine
DX: I48.19 Other persistent atrial fibrillation (principal); Z98.890 Other specified postprocedural states; Z86.79 Personal history of other diseases of the circulatory system; I42.8 Other cardiomyopathies
CPT/HCPCS: 99214

== ENCOUNTER → 2023-01-28 14:45 | Outpatient (BNVA) | payer OTHER, SELFPAY | PROVIDERS: PCP Physician Assistant; Visit Provider Internal Medicine | DX: I48.19 Other persistent atrial fibrillation (principal); I42.8 Other cardiomyopathies; Z98.890 Other specified postprocedural states; Z86.79 Personal history of other diseases of the circulatory system | CPT/HCPCS: 99212 ==

== ENCOUNTER 2023-02-02 08:41 | Outpatient (AMB) | payer OTHER, SELFPAY ==
[2023-02-02 08:53] VITALS: BP 128/70; PULSE 84; O2SAT 97; BMI 30.7
--- NOTE | 2023-02-02 08:53 | MHC.PC.OV ---
Vital Signs 02/02/23 08:53 Height 5 ft 11 in Weight 220 lb 2 oz BMI 30.7 BP 128/70 Blood Pressure Location Lt brachial Position Sitting Pulse 84 Pulse Source Pulse Oximeter Pulse Oximetry (%) 97 Oxygen Delivery Method Room Air Intake Visit Reasons: HTN, AFib Center Receptionist Required: No Accompanied by: Self / Same As Patient Allergies No Known Allergies [No Known Allergies*] Allergy (Verified 02/02/23 09:34) Medication List - Last Reconciled 02/02/23 by Jose Campuzano PA-C acetaminophen 500 mg PO Q6H PRN 90 days apixaban (Eliquis) 5 mg PO BID 90 days baclofen 20 mg PO DAILY 30 days digoxin (Digox) 125 mcg PO DAILY diltiazem HCl 120 mg PO DAILY galcanezumab-gnlm (Emgality) 300 mg subcutaneously; 30 days lisinopril 10 mg PO DAILY 90 days magnesium oxide 250 mg PO BID 90 days metoprolol succinate ER 200 mg PO DAILY 90 days Oxygen Home Use 12-15 lpm via non-rebreather mask x's 15-20 minutes prn Cluster attack. M tank and E tanks sumatriptan succinate 100 mg PO Q2H PRN 30 days sumatriptan succinate 6 mg (0.5 mL) subcut ONCE 30 days tramadol 50 mg PO BID PRN 15 days Tobacco use date assessed: 09/28/22 Fall risk assessment: No Falls in past year Last assessed Fall Risk: 02/02/23 Dental Screening Dental Screen Date: 02/02/23 Did you have a dental visit in the last 12 months?: No Did you have a dental problem in the last 6 months where you did not have access to dental care?: No Was dental information given to patient?: No (Dentures) HPI HTN, AFib HPI Details Patient is a 62-year-old male here today for follow-up visit. .? Patient has a past medical history significant for paroxysmal AFib, PE, hypertension, tobacco use disorder, severe Right hip osteoarthritis status post arthroplasty. . Concerns--> report having lower lumbar spine pain that radiates into his right buttocks down his right lower extremity. Signs symptoms consistent with sciatic on patient agrees. He is not interested in any physical therapy or injections at this time. Of note this is likely related to his gait secondary to his total hip replacement. .. AFIB: Followed by gum machine filler here in [place]. Recent cardiac event monitor showing elevated heart rates. Has been started on diltiazem. He otherwise denies any overt signs of bleeding Interval history---> Has had a cardioablation 2015 and has been stable with rate control and anticoagulation.? He does follow a gum machine filler at [facility] though is interested in transferring to [place] cardiology. .. Migraines: Has now established with neurology. Was prescribed emgality though has not been able to get insurance coverage. He does have somatic Triptan available to him. He does report tramadol is helpful during times of migraine attacks. .. HTN: seldomly checks BP at home.? He reports his blood pressures have been stable on current dose of lisinopril and metoprolol. COUNT INCLUDES THE [facility] Medical History (Updated 02/02/23 @ 09:40 by Jose Campuzano PA-C) Personal history of nicotine dependence History of pulmonary embolism (~2017) HTN (hypertension) Osteoarthritis of right hip Afib (~2017) Surgical History S/P ablation of atrial flutter History of right hip replacement History of cardioversion Family History Father Family history of dementia Mother Breast cancer Housing: Apartment Alcohol intake: current Alcohol intake frequency: a few times a week Alcohol type: beer Patient Tobacco Use Status: Former Tobacco user Tobacco use type: Cigarette Cigarette Packs Per Day: 0.5 Cigarettes Per Day: 10 e-Cigarette/Vaping Use: Never Used Second Hand Smoke Exposure: No service: No Current occupational status: employed Current occupation: [employer] Current occupational exposures/hazards: No Cognitive needs: No Hearing needs: No Vision needs: Yes Questionnaire Thrive Questionnaire Date Thrive assessed: 07/29/22 ZAC-7 AMB Questionnaire ZAC-7 Date ZAC - 7 assessed: 09/28/22 Source: Developed by Drs. Drew Trent, Skylar Fitzgerald, Moses Fields and colleagues, with an educational richie from [employer] Review of Systems Const Denies headache(s) Eyes Denies loss of vision ENT Denies vertigo, Denies dizziness, Denies headache(s) and Denies sore throat Card Denies chest pain, Denies leg edema and Denies lightheadedness Resp Denies cough, Denies hemoptysis and Denies wheezing GI Denies abdominal pain, Denies melena, Denies constipation, Denies diarrhea and Denies vomiting Denies dysuria, Denies urinary frequency and Denies urinary urgency Musc Denies arthralgias, Denies joint swelling, Denies numbness and Denies tingling Neuro Denies Abnormal speech present, Denies behavioral changes, Denies vertigo, Denies dizziness, Denies headache(s), Denies loss of vision, Denies memory loss, Denies numbness and Denies tingling Psych Denies anxiety, Denies behavioral changes, Denies depression, Denies memory loss and Denies panic attacks Laureano/Lymph Denies easy bleeding and Denies easy bruising Aller/Immun Denies wheezing Physical exam (Primary Care) Vital Signs: Last Vital Signs Pulse 84 02/02/23 08:53 BP 128/70 02/02/23 08:53 Pulse Ox 97 02/02/23 08:53 Oxygen Delivery Method Room Air 02/02/23 08:53 BMI result Body Mass Index 30.7 Tobacco/Smoking Status: Tobacco use Status Tobacco use date assessed 09/28/22 02/02/23 08:54 Patient Tobacco Use Status Former Tobacco user 02/02/23 08:54 Tobacco use type Cigarette 02/02/23 08:54 e-Cigarette/Vaping Use Never Used 02/02/23 08:54 Thrive Assessment: Date of Thrive Assessment Date Thrive assessed 07/29/22 02/02/23 08:54 Const General: healthy appearing, no acute distress, alert and awake Nutritional Appearance: well nourished Orientation/consciousness: oriented to person, oriented to place and oriented to time HENMT Ears: TM's normal bilaterally General nose exam: Normal nasal mucous membranes and turbinates present Eyes Conjunctivae: conjunctivae normal Sclerae: sclerae normal Pupils: Equal, round and reactive pupils present Neck Neck: Yes no lymphadenopathy and Yes no JVD Thyroid: Thyroid normal Carotids: no bruits Resp Effort & Inspection: normal respiratory effort and not tachypneic Auscultation: no crackles, no rales, no rhonchi and no wheezes Cardio Rate: regular rate Rhythm: regular rhythm Heart sounds: no murmurs and normal S1 and S2 GI Palpation (GI): Soft to palpation, nontender, no hepatomegaly and no splenomegaly Auscultation: normal bowel sounds Skin General skin exam: no rashes or lesions noted and dry skin Neuro General: oriented to person, oriented to place and oriented to time Cranial nerves: Yes Equal, round and reactive pupils present Speech: No Abnormal speech present Gait exam (Neuro): Normal gait present Motor exam (neuro): no tremor noted Extrem Right upper extremity: full ROM Left upper extremity: full ROM Right lower extremity: full ROM; no edema Left lower extremity: full ROM; no edema Psych Mental Status: mental status grossly normal Speech and movement: Normal speech and movement present Affect: normal affect Attitude: cooperative Thought process: Normal thought process present Results AMB Hemoglobin A1c AMB Hemoglobin A1c 5.9 % Last Edit by Brandie Rosario on 02/02/23 09:19 Results Reviewed Results Reviewed: Laboratory Last Values Hgb A1c (Clinic) 5.9 % (4.0-6.0) 02/02/23 09:16 Assessment and Plan Assessment & Plan (1) Persistent atrial fibrillation: Code(s): I48.19 - Other persistent atrial fibrillation Plan: Patient continues to follow cardiology. He is on Eliquis for his anticoagulation without any overt signs of bleeding. Recent Holter monitor showing elevated heart rates and PVCs. He has been recently started on diltiazem for better rate control.. (2) Sciatica of right side: Code(s): M54.31 - Sciatica, right side Plan: Continues to have right-sided buttocks and lower lateral right leg pain. Signs and symptoms consistent with a sciatica. Offered referral to physical therapy though he declines at this time. He will use tramadol on a p.r.n. basis for pain scales of 8-10. (3) HTN (hypertension): Code(s): I10 - Essential (primary) hypertension Qualifiers: Hypertension type: primary hypertension Qualified Code(s): I10 - Essential (primary) hypertension Plan: Patient's blood pressure acceptable today in office. Will continue his current dose of antihypertensive medication with goal blood pressure to be below 140/90 (4) Cluster headaches: Comment: likely familial- father had headache c/w [place] Code(s): G44.009 - Cluster headache syndrome, unspecified, not intractable Qualifiers: Headache chronicity pattern: episodic headache Intractability: not intractable Qualified Code(s): G44.019 - Episodic cluster headache, not intractable Plan: Patient now followed by Neurology. He does take sumatriptan on a p.r.n. basis. Tylenol has been somewhat helpful ass well. M gout has been prescribed though has been having trouble with insurance coverage. He reports his migraines are still present though not as severe as of lately. Orders: Orders AMB Hemoglobin A1c 02/02/23 Z13.9 - Encounter for screening, unspecified Microalbumin, Random (w Creat) 6 Months I10 - Essential (primary) hypertension Comprehensive [place]. Panel Fast 6 Months I10 - Essential (primary) hypertension Prostate Specific Antigen Scr 6 Months I10 - Essential (primary) hypertension, Z12.5 - Encounter for screening for malignant neoplasm of prostate Complete Blood Count no Diff 6 Months I48.91 - Unspecified atrial fibrillation Lipid Panel 6 Months I42.8 - Other cardiomyopathies Medications: Refilled tramadol 50 mg PO BID 15 days PRN 30 tabs 2RF pain M16.11 - Unilateral primary osteoarthritis, right hip Coding Level of Care Code Est Pt Level 4 (26979) Diagnoses Persistent atrial fibrillation I48.19 Sciatica of right side M54.31 Primary hypertension I10 Hypertension type: primary hypertension Episodic cluster headache, not intractable G44.019 Headache chronicity pattern: episodic headache Intractability: not intractable
== END 2023-02-02 09:48 | disposition home or self-care (01) ==
PROVIDERS: PCP Physician Assistant; Visit Provider Physician Assistant
DX: I48.19 Other persistent atrial fibrillation (principal); M54.31 Sciatica, right side; I10 Essential (primary) hypertension; Z87.891 Personal history of nicotine dependence; G44.019 Episodic cluster headache, not intractable
CPT/HCPCS: 83036; 99214

== ENCOUNTER 2023-02-15 10:39 | Outpatient (AMB) | payer OTHER, SELFPAY ==
--- NOTE | 2023-02-15 10:54 | MHC.OFFVIS ---
Intake Vital Signs 02/15/23 10:55 Weight 224 lb BP 130/68 Blood Pressure Location Lt brachial Position Sitting Pulse 66 Pulse Source Pulse Oximeter Pulse Oximetry (%) 96 Oxygen Delivery Method Room Air Intake Visit Reasons: 3m follow up Cluster Headaches/LVM Allergies No Known Allergies [No Known Allergies*] Allergy (Verified 02/15/23 10:58) Medication List - Last Reconciled 02/15/23 by IVAN Tran acetaminophen 500 mg PO Q6H PRN 90 days apixaban (Eliquis) 5 mg PO BID 90 days baclofen 20 mg PO DAILY 30 days digoxin (Digox) 125 mcg PO DAILY diltiazem HCl 120 mg PO DAILY galcanezumab-gnlm (Emgality) 300 mg subcutaneously ;q month during cluster phase; 30 days lisinopril 10 mg PO DAILY 90 days magnesium oxide 250 mg PO BID 90 days metoprolol succinate ER 200 mg PO DAILY 90 days Oxygen Home Use 12-15 lpm via non-rebreather mask x's 15-20 minutes prn Cluster attack. M tank and E tanks sumatriptan succinate 100 mg PO Q2H PRN 30 days sumatriptan succinate 6 mg (0.5 mL) subcut ONCE 30 days tramadol 50 mg PO BID PRN 15 days HPI HPI Comments History of Present Illness Details 62-yr-old male presents for f/u visit. Pt denies any significant interval medical changes. Pt reports he is out of his full cluster bout. However he continues to have a right eye/yazidi lower intensity but bothersome headache lasting 3-7hrs- a/w watery eyes, some restlessness. Not a/w yawning. Ice on head and heat on neck helps. He has not started Emgality yet- was just approved. Just recently rec'd Sumatriptan inj and tabs- again just approved and cleared by pharmacy. Has not rec'd O2 yet. Brain MRI and MRA not completed d/t insurance lapse [facility] Medical History Personal history of nicotine dependence History of pulmonary embolism (~2016) HTN (hypertension) Osteoarthritis of right hip Afib (~2016) Surgical History S/P ablation of atrial flutter History of right hip replacement History of cardioversion Family History Father Family history of dementia Mother Breast cancer Social History (Updated 02/15/23 @ 10:59 by Chantelle Mckinnon) Housing: Apartment Alcohol intake: current Alcohol intake frequency: a few times a week Alcohol type: beer Patient Tobacco Use Status: Current everyday Tobacco user Tobacco use type: Cigarette Cigarette Packs Per Day: 0.5 Cigarettes Per Day: 10 e-Cigarette/Vaping Use: Never Used Second Hand Smoke Exposure: No service: No Current occupational status: employed Current occupation: [employer] Current occupational exposures/hazards: No Cognitive needs: No Hearing needs: No Vision needs: Yes Review of Systems Const All systems reviewed & are unremarkable except as noted in HPI and below Physical Exam Vital Signs: Last Vital Signs Pulse 66 02/15/23 10:55 BP 130/68 02/15/23 10:55 Pulse Ox 96 02/15/23 10:55 Oxygen Delivery Method Room Air 02/15/23 10:55 Const General: cooperative and no acute distress Orientation/consciousness: patient oriented x3 HEENT Head: Yes normocephalic Resp Effort & Inspection: normal respiratory effort and able to speak in complete sentences Neuro General: patient oriented x3 and CN's II-XI intact bilaterally Cognition (Neuro): normal cognition Gait exam (Neuro): Antalgic gait present Motor exam (neuro): 5/5 motor strength present throughout Psych Appearance: grossly normal Mental Status: mental status grossly normal Speech and movement: Normal speech and movement present Affect: normal affect Attitude: cooperative Thought process: Normal thought process present Thought content: Normal thought content present Insight: Good insight present (Psych) Judgement: Good judgement present (Psych) Assessment & Plan Assessment & Plan (1) Cluster headaches: Comment: likely familial- father had headache c/w Code(s): G44.009 - Cluster headache syndrome, unspecified, not intractable Qualifiers: Headache chronicity pattern: episodic headache Intractability: not intractable Qualified Code(s): G44.019 - Episodic cluster headache, not intractable (2) Migraine headache: Code(s): G43.909 - Migraine, unspecified, not intractable, without status migrainosus Plan Pt again advised to undergo brain/head MRI w/wo and MRA- to assess for secondary intracranial etiologies of right-sided side-locked headache w/ autonomic s/s. Future considerations: HST. ? For overall headache management: Continue to optimize good self-care, including but not limited to maintaining a healthy diet, adequate fluid intake, adequate sleep, and engaging in regular physical activity. Track headaches- cluster ALMARAZ, right sided headcahe w/ milder autonomic s/s, and migraine. ? For acute cluster and right sided headache treatment: Will f/u on order for Oxygen. In order of tx: 1- Oxygen 12-15 lpm via non-rebreather mask x's 15-30 minutes at onset of cluster attack. Pt will need both M tanks and E tanks. 2- Sumatriptan 6mg sc inj- may repeat in 1 hr (max 12mg/day). 3- Sumatriptan 100mg tabs prn Previous acute migraine medication trials: Sumatriptan 100mg tab- not fully effective. Acute migraine medication contraindications: Trudhessa- very potent vasodilator ? For headache prevention medication: Continue Riboflavin 400mg qam Continue Magnesium 250mg bid. Start Emgality 300mg sc q month. Continue Metoprolol and Verapamil per cardiology- may be helping headache as well. Reviewed potential adverse effects of Emgality, including but not limited to injection site reactions. Previous migraine prevention medication trials: no other Migraine prevention medication contraindications: none at this time ? Will f/u after review of studies, and follow-up in clinic in 3 months or sooner prn. Coding Level of Care Code Est Pt Level 4 (40155) Diagnoses Episodic cluster headache, not intractable G44.019 Headache chronicity pattern: episodic headache Intractability: not intractable Migraine headache G43.909
[2023-02-15 10:55] VITALS: BP 130/68; PULSE 66; O2SAT 96
== END 2023-02-15 11:29 | disposition home or self-care (01) ==
PROVIDERS: PCP Physician Assistant; Visit Provider Nurse Practitioner Family
DX: G44.019 Episodic cluster headache, not intractable (principal); G43.909 Migraine, unspecified, not intractable, without status migrainosus
CPT/HCPCS: 99214

== ENCOUNTER → 2023-02-15 10:39 | Outpatient (BNVA) | payer OTHER, SELFPAY | PROVIDERS: PCP Physician Assistant; Visit Provider Nurse Practitioner Family | DX: G44.019 Episodic cluster headache, not intractable (principal); G43.909 Migraine, unspecified, not intractable, without status migrainosus; I48.91 Unspecified atrial fibrillation | CPT/HCPCS: 99212 ==

== ENCOUNTER 2023-03-24 13:33 | Outpatient (REF) | payer OTHER, SELFPAY ==
--- NOTE | ~2023-03-24 | MR_ITS ---
EXAMINATION: MR ANGIOGRAPHY HEAD CLINICAL INFORMATION: Cluster headaches. COMPARISON: Concurrent MRI scan of the brain 03/24/2023. CT scan of the head 09/25/2022. TECHNIQUE: 3D time of flight MR angiography of the intracranial vasculature was obtained. Reformatted images were generated at the technologist workstation and source images were reviewed along with rotating MIPs. The degree of stenosis is based off NASCET criteria. FINDINGS: In the anterior circulation, the distal internal carotid arteries within the neck appear normal. The intracranial internal carotid arteries and their bifurcations appear normal. The A1 segment of the right anterior cerebral artery is uniformly thin compared to the left, likely a normal variant. The the bilateral middle and right anterior cerebral arteries demonstrate normal caliber with no evidence of focal stenosis, aneurysm or vascular malformation. The anterior communicating artery is normal. In the posterior circulation, the vertebral arteries are codominant and have uniform caliber. The basilar artery appears normal. There is a origin of the right posterior cerebral artery; the posterior cerebral arteries have normal caliber. MR/MR angio head wo con IMPRESSION: MR angiography of the intracranial circulation does not demonstrate focal stenosis, aneurysm or vascular malformation. The study is within normal limits.
--- NOTE | ~2023-03-24 | MR_ITS ---
EXAMINATION: MR BRAIN WITH AND WITHOUT CONTRAST CLINICAL INFORMATION: Cluster headache COMPARISON: CT head 09/25/2022 TECHNIQUE: MRI of the brain was obtained using routine sequences before and following administration of intravenous contrast. A total of 9 mL of Gadavist was administered intravenously. FINDINGS: No acute infarct. The GRE sequence is without susceptibility artifact to suggest acute or chronic blood products. No extra-axial fluid collection. Mild generalized parenchymal volume loss. A couple nonspecific T2 FLAIR hyperintense foci in the subcortical and periventricular white matter are nonspecific and likely of no clinical significance. No abnormal intraparenchymal or leptomeningeal enhancement. No significant mass effect or herniation pattern. The intracranial dural venous sinus and arterial flow voids are preserved. Normal appearance of the midline structures. Chronic right lamina papyracea fracture deformity with herniation of medial extraconal fat into the defect and slight tenting of the right medial rectus muscle. Mild ethmoid air cell mucosal thickening. No mastoid effusion. Normal marrow signal. MR/MR head/brain wo/w con IMPRESSION: 1. No acute intracranial abnormality. No pathologic intracranial enhancement. 2. Chronic right lamina papyracea fracture deformity with herniation of medial extraconal fat into the defect and slight tenting of the right medial rectus muscle. 3. Mild age-appropriate global cerebral volume loss.
[2023-03-24] MEDS: gadobutroL 10 ML VIAL IVPUSH (14:23)
== END 2023-03-24 13:34 | disposition home or self-care (01) ==
LOC: HO.MRI 13:33
PROVIDERS: PCP Physician Assistant; Visit Provider Nurse Practitioner Family
DX: G43.909 Migraine, unspecified, not intractable, without status migrainosus (principal); I48.91 Unspecified atrial fibrillation; F17.200 Nicotine dependence, unspecified, uncomplicated; Z79.01 Long term (current) use of anticoagulants
CPT/HCPCS: 70544; 70553; A9585

== ENCOUNTER 2023-06-02 15:10 | Outpatient (AMB) | payer OTHER, SELFPAY ==
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
[2023-06-02 15:12] VITALS: BP 102/70; PULSE 98; BMI 31.1
== END 2023-06-02 15:22 | disposition home or self-care (01) ==
PROVIDERS: PCP Physician Assistant; Visit Provider Internal Medicine
DX: I48.19 Other persistent atrial fibrillation (principal); Z98.890 Other specified postprocedural states; Z86.79 Personal history of other diseases of the circulatory system; I42.8 Other cardiomyopathies
CPT/HCPCS: 99214

== ENCOUNTER → 2023-06-02 15:10 | Outpatient (BNVA) | payer OTHER, SELFPAY | PROVIDERS: PCP Physician Assistant; Visit Provider Internal Medicine | DX: I48.19 Other persistent atrial fibrillation (principal); I42.9 Cardiomyopathy, unspecified; I42.8 Other cardiomyopathies | CPT/HCPCS: 99212 ==

== ENCOUNTER 2023-06-15 10:02 | Outpatient (AMB) | payer OTHER, SELFPAY ==
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
[2023-06-15 10:06] VITALS: BP 128/68; PULSE 67; RESP 16; O2SAT 97; BMI 31.4
== END 2023-06-15 11:08 | disposition home or self-care (01) ==
PROVIDERS: PCP Physician Assistant; Visit Provider Nurse Practitioner Family
DX: G44.019 Episodic cluster headache, not intractable (principal); G43.909 Migraine, unspecified, not intractable, without status migrainosus; F17.200 Nicotine dependence, unspecified, uncomplicated
CPT/HCPCS: 99214

== ENCOUNTER → 2023-06-15 10:02 | Outpatient (BNVA) | payer OTHER, SELFPAY | PROVIDERS: PCP Physician Assistant; Visit Provider Nurse Practitioner Family | DX: G44.019 Episodic cluster headache, not intractable (principal); G43.909 Migraine, unspecified, not intractable, without status migrainosus; F17.210 Nicotine dependence, cigarettes, uncomplicated | CPT/HCPCS: 99212 ==

== ENCOUNTER 2023-08-03 10:12 | Outpatient (AMB) | payer OTHER, SELFPAY ==
[2023-08-03 10:14] VITALS: BP 122/82; PULSE 70; BMI 31.4
--- NOTE | 2023-08-03 10:14 | A.OFFPC_ITS ---
Vital Signs 08/03/23 10:14 Height 5 ft 11 in Weight 225 lb 6 oz BMI 31.4 BP 122/82 Blood Pressure Location Lt brachial Position Sitting Pulse 70 Pulse Source Pulse Oximeter Intake Visit Reasons: 6 month f/u Triage Technician Required: No Accompanied by: Self / Same As Patient Allergies No Known Allergies [No Known Allergies*] Allergy (Verified 08/03/23 10:37) Medication List - Last Reconciled 08/03/23 by Jose Campuzano PA-C acetaminophen 500 mg PO Q6H PRN 90 days apixaban (Eliquis) 5 mg PO BID 90 days baclofen 20 mg PO DAILY 30 days digoxin (Digox) 125 mcg PO DAILY diltiazem HCl CD 120 mg PO DAILY galcanezumab-gnlm (Emgality) 300 mg subcut .monthly PRN lisinopril 10 mg PO DAILY 90 days magnesium oxide 250 mg PO BID 90 days metoprolol succinate ER 200 mg PO DAILY 90 days Oxygen Home Use 12-15 lpm via non-rebreather mask x's 15-20 minutes prn Cluster attack. M tank and E tanks sumatriptan succinate 100 mg PO Q2H PRN 30 days sumatriptan succinate 6 mg (0.5 mL) subcut ONCE 30 days tramadol 50 mg PO BID PRN 15 days Tobacco use date assessed: 08/03/23 Fall risk assessment: No Falls in past year Last assessed Fall Risk: 08/03/23 Dental Screening Dental Screen Date: 08/03/23 Did you have a dental visit in the last 12 months?: No Did you have a dental problem in the last 6 months where you did not have access to dental care?: No Was dental information given to patient?: No (no teeth) HPI 6 month f/u HPI Details Patient is a 62-year-old male here today for follow-up visit. .? Patient has a past medical history si gnificant for paroxysmal AFib, PE, hypertension, tobacco use disorder, severe Right hip osteoarthritis status post arthroplasty. . Concerns--> .. 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 Has been started on diltiazem. He continues on Eliquis without any overt signs of bleeding. He otherwise denies any overt signs of bleeding Interval history---> Has had a cardioablation 2015 and has been stable with rate control and anticoagulation.? .. Tobacco dependency: He has reduced his smoking to 5 cigarettes per day. She unfortunately has still been having hard time completely quitting. Declines my offer to start nicotine replacement at this time. .. Cluster Migraines: Has now established with neurology. Was prescribed emgality which has been helpful. Also does have oxygen at home for his acute cluster migraine attacks. He reports his migraines have been much better He does have somatic Triptan available to him. He does report tramadol is help ful during times of migraine attacks. .. HTN: seldomly checks BP at home.? He reports his blood pressures have been stable on current dose of lisinopril and metoprolol. [facility] Medical History (Updated 08/04/23 @ 07:30 by Jose Campuzano PA-C) Personal history of nicotine dependence History of pulmonary embolism (~2017) HTN (hypertension) Osteoarthritis of right hip Surgical History S/P ablation of atrial flutter History of right hip replacement History of cardioversion Family History Father Family history of dementia Mother Breast cancer Social History Housing: Apartment Alcohol intake: current Alcohol intake frequency: a few times a week Alcohol type: beer Patient Tobacco Use Status: Current everyday Tobacco user Tobacco use type: Cigarette Cigarettes Per Day: 5 e-Cigarette/Vaping Use: Never Used Second Hand Smoke Exposure: No service: No Current occupational status: employed Current occupation: [employer] Current occupational exposures/hazards: No Cognitive needs: No Hearing needs: No Vision needs: Yes Questionnaire PHQ-9 Over the last 2 weeks, how often have you been bothered by any of the following problems? 1. Little interest or pleasure in doing things: not at all 2. Feeling down, depressed, or hopeless: not at all 3. Trouble falling or staying asleep, or sleeping too much: not at all 4. Feeling tired or having little energy: not at all 5. Poor appetite or overeating: not at all 6. Feeling bad about yourself - or that you are a failure or have let yourself or your family down: not at all 7. Trouble concentrating on things, such as reading the newspaper or watching television: not at all 8. Moving or speaking so slowly that other people could have noticed. Or the opposite - being so fidgety or restless that you have been moving around a lot more than usual: not at all 9. Thoughts that you would be better off or of hurting yourself in some way: not at all Total score: 0 Depression Screening Interpretation: Negative Depression Screening Done: Yes 73777 - PHQ-9 Billing: Yes Source: Developed by Drs. Drew Trent, Skylar Fitzgerald, Moses Fields and colleagues, with an educational richie from [employer]. Thrive Questionnaire Date Thrive assessed: 08/03/23 I am a: Patient What is your living situation today?: I have a steady place to live Within the past 12 months, did the food you bought not last and you didn't have the money to get more?: Never true Within the past 12 months, did you worry whether your food would run out before you got money to buy more?: Never true Do you have trouble paying for medicines?: No Do you have trouble getting transportation to medical appointments?: No Do you have trouble paying your heating and electricity bill?: No Do you have trouble taking care of your child, family member or friend?: No Do you have trouble with day-to-day activities such as bathing, preparing meals, shopping, managing finances, etc.?: No Are you currently unemployed and looking for a job?: No Are you interested in more education?: No Please select the resources that you would like help with: None Currently or been in a relationship where the following occur: no concerns reported THRIVE Score: 0 AUDIT C Alcohol Use Questionnaire (AUDIT-C) 1. How often do you have a drink containing alcohol?: Monthly or less 2. How many drinks containing alcohol do you have on a typical day when you are drinking?: 1 or 2 3. How often do you have six or more drinks on one occasion?: Never Total Score: 1 Score Reviewed/Action Taken: Yes ZAC-7 AMB Questionnaire ZAC-7 Date ZAC - 7 assessed: 08/03/23 Feeling nervous, anxious, or on edge: 0 = Not at all Not being able to stop or control worryin = Not at all Worrying too much about different things: 0 = Not at all Trouble relaxin = Not at all Being so restless that it is hard to sit still: 0 = Not at all Becoming easily annoyed or irritable: 0 = Not at all Feeling afraid as if something awful might happen: 0 = Not at all Total ZAC-7 score (0-4 normal; 5-9 mild; 10-14 moderate; 15-21 severe): 0 Source: Developed by Drs. Drew Tretn, Skylar Fitzgerald, Moses Fields and colleagues, with an educational richie from [employer]. ZAC-7 Assessment Billing ZAC-7 Assessment Tool: ZAC-7 Assessment 41234 Review of Systems Const Denies headache(s) Eyes Denies loss of vision ENT Denies vertigo, Denies dizziness, Denies headache(s) and Denies sore throat Card Denies chest pain, Denies leg edema and Denies lightheadedness Resp Denies cough, Denies hemoptysis and Denies wheezing GI Denies abdominal pain, Denies melena, Denies constipation, Denies diarrhea and Denies vomiting Denies dysuria, Denies urinary frequency and Denies urinary urgency Musc Denies arthralgias, Denies joint swelling, Denies numbness and Denies tingling Neuro Denies Abnormal speech present, Denies behavioral changes, Denies vertigo, Denies dizziness, Denies headache(s), Denies loss of vision, Denies memory loss, Denies numbness and Denies tingling Psych Denies anxiety, Denies behavioral changes, Denies depression, Denies memory loss and Denies panic attacks Laureano/Lymph Denies easy bleeding and Denies easy bruising Aller/Immun Denies wheezing Physical exam (Primary Care) Vital Signs: Last Vital Signs Pulse 70 08/03/23 10:14 BP 122/82 08/03/23 10:14 BMI result Body Mass Index 31.4 BMI Assessment/Plan discussion: High BMI High, discussed plan: lifestyle, weight reduction, dietary and physical activity Tobacco/Smoking Status: Tobacco use Status Tobacco use date assessed 08/03/23 08/03/23 10:33 Patient Tobacco Use Status Current everyday Tobacco 08/03/23 10:16 Tobacco use type Cigarette 08/03/23 10:16 e-Cigarette/Vaping Use Never Used 08/03/23 10:16 Are you ready to quit: No Tobacco cessation counseling provided: Yes Items discussed: Nicotine replacement Relapse Prevention: discussed the importance of a supportive environment, discussed negative mood or depression after quitting, weight gain after smoking is common and discussed dietary, exercise and/or lifestyle changes Number of minutes spent counselin PHQ-9: PHQ-9 Score PHQ-9: Total score 0 08/04/23 07:30 Depression Screening Interpretation: Negative Thrive Assessment: Date of Thrive Assessment Date Thrive assessed 08/03/23 08/03/23 10:16 Currently or been in a relationship where the following occur: no concerns reported Const General: healthy appearing, no acute distress, alert and awake Nutritional Appearance: well nourished Orientation/consciousness: oriented to person, oriented to place and oriented to time HENMT Ears: TM's normal bilaterally General nose exam: Normal nasal mucous membranes and turbinates present Eyes Conjunctivae: conjunctivae normal Sclerae: sclerae normal Pupils: Equal, round and reactive pupils present Neck Neck: Yes no lymphadenopathy and Yes no JVD Thyroid: Thyroid normal Carotids: no bruits Resp Effort & Inspection: normal respiratory effort and not tachypneic Auscultation: no crackles, no rales, no rhonchi and no wheezes Cardio Rate: regular rate Rhythm: regular rhythm Heart sounds: no murmurs and normal S1 and S2 GI Palpation (GI): Soft to palpation, nontender, no hepatomegaly and no splenomegaly Auscultation: normal bowel sounds Skin General skin exam: no rashes or lesions noted and dry skin Neuro General: oriented to person, oriented to place and oriented to time Cranial nerves: Yes Equal, round and reactive pupils present Speech: No Abnormal speech present Gait exam (Neuro): Normal gait present Motor exam (neuro): no tremor noted Extrem Right upper extremity: full ROM Left upper extremity: full ROM Right lower extremity: full ROM; no edema Left lower extremity: full ROM; no edema Psych Mental Status: mental status grossly normal Speech and movement: Normal speech and movement present Affect: normal affect Attitude: cooperative Thought process: Normal thought process present Results AMB Hemoglobin A1c AMB Hemoglobin A1c 6.0 % Last Edit by KENDRA Bucio on 08/03/23 10:38 Results Reviewed Results Reviewed: Laboratory Last Values Hgb A1c (Clinic) 6.0 % (4.0-6.0) 08/03/23 10:37 Assessment and Plan Assessment & Plan (1) Persistent atrial fibrillation: Code(s): I48.19 - Other persistent atrial fibrillation Plan: Patient continues to follow cardiology. He is on Eliquis for his anticoagulation without any overt signs of bleeding. Continues on diltiazem, metoprolol and digoxin for rhythm and rate control. Otherwise doing quite well and does denies recent any syncopal episodes or palpitations. (2) Sciatica of right side: Code(s): M54.31 - Sciatica, right side Plan: Continues to have right-sided buttocks and lower lateral right leg pain. Signs and symptoms consistent with a sciatica. Offered referral to physical therapy though he declines at this time. He will use tramadol on a p.r.n. basis for pain scales of 8-10. (3) HTN (hypertension): Code(s): I10 - Essential (primary) hypertension Qualifiers: Hypertension type: primary hypertension Qualified Code(s): I10 - Essential (primary) hypertension Plan: Patient's blood pressure acceptable today in office. Will continue his current dose of antihypertensive medication with goal blood pressure to be below 140/90 (4) Cluster headaches: Comment: likely familial- father had headache c/w [place] Code(s): G44.009 - Cluster headache syndrome, unspecified, not intractable Qualifiers: Headache chronicity pattern: episodic headache Intractability: not intractable Qualified Code(s): G44.019 - Episodic cluster headache, not intractable Plan: Patient now followed by Neurology. Now has Home O2 in case of headaches. He does take sumatriptan on a p.r.n. basis. Tylenol has been somewhat helpful ass well. M gout has been prescribed though has been having trouble with insurance coverage. He reports his migraines are still present though not as severe as of lately. (5) Smoker: Code(s): F17.200 - Nicotine dependence, unspecified, uncomplicated Plan: Continues smoking 5 cigarettes per day. He has reduced his smoking altogether. We did discuss perhaps getting a referral to the lung cancer screening program and he is considering at this time. Offered him nicotine replacement though he declines. (6) Impaired glucose metabolism: Code(s): R73.09 - Other abnormal glucose Plan: Today's A1c is 6.0 from 5.9. Will work extensively on lifestyle and dietary modifications. Orders: Orders AMB Hemoglobin A1c 08/03/23 Jose Campuzano PA-C Z13.1 - Encounter for screening for diabetes mellitus Medications: Changed From galcanezumab-gnlm (Emgality) (3 mL) 300 mg subcutaneously ;q month during cluster phase; 30 days 3 mL 6RF G44.009 - Cluster headache syndrome, unspecified, not intractable To galcanezumab-gnlm (Emgality) 300 mg subcut .monthly PRN G44.009 - Cluster headache syndrome, unspecified, not intractable IVAN Tran Patient Instructions: Goal: Blood pressure to remain below 140/90 Barriers: Adherence to physical activity and healthy eating habits Coding Level of Care Code Est Pt Level 4 (61441) Diagnoses Persistent atrial fibrillation I48.19 Sciatica of right side M54.31 Primary hypertension I10 Hypertension type: primary hypertension Episodic cluster headache, not intractable G44.019 Headache chronicity pattern: episodic headache Intractability: not intractable Smoker F17.200 Impaired glucose metabolism R73.09 Additional Codes ZAC-7 Assessment Billing - ZAC-7 Assessment Tool: ZAC-7 Assessment 56300 ([id number])
== END 2023-08-03 10:55 | disposition home or self-care (01) ==
PROVIDERS: PCP Physician Assistant; Visit Provider Physician Assistant
DX: R73.09 Other abnormal glucose (principal)
CPT/HCPCS: 83036; 99214

== ENCOUNTER → 2023-11-30 09:52 | Outpatient (REF) | payer MEDICARE, SELFPAY ==
--- NOTE | 2023-11-30 09:56 | CA_ITS ---
Transthoracic Echocardiogram Patient (Last, First, Middle): Nic Dan A Gender: Male Date of : 1960 Age: 63 Procedure Date: 11/30/2023 Procedure Type: Transthoracic Echocardiogram Location: OP Height: 182.88 cm Weight: 90.72 kg BSA: 2.13 m2 Heart Rate: bpm BP: 110 / 64 mmHg Automobile Brake Bonder: REBECCA Referring MD: Sanjay Marcos MD [employer] Web Developer: Antione Lucas MD Symptoms: I48.19 - Other persistent atrial fibrillation Study Quality: Technically Difficult, contrast ECG Rhythm: Atrial Fibrillation Conclusions: - 1. Normal LV ejection fraction 55-60% 2. Cardiac valvular Dopplers within normal limits 3. Mildly dilated ascending aorta at 3.9 cm Findings Procedure Information Contrast agent, definity, is being given per protocol without apparent complications. Left Ventricle Normal left ventricular size, thickness, and systolic function. The visually estimated ejection fraction is between 55-60%. Diastolic function is indeterminate on the basis of available data. Right Ventricle Normal right ventricular cavity size. There is low normal right ventricular systolic function. Atria The left atrium was not well visualized. Interatrial shunt cannot be excluded. The right atrium was not well visualized. Aortic Valve The aortic valve was not well visualized. There is no aortic valve stenosis. There is no aortic valve regurgitation. Mitral Valve The mitral valve was not well visualized. There is trace mitral valve regurgitation. There is no mitral valve stenosis. Pulmonic Valve The pulmonic valve was not well visualized. Tricuspid Valve The tricuspid valve was not well visualized. Tricuspid regurgitation envelope is inadequate for calculation of right ventricular systolic pressure. Normal right atrial pressure. Great Vessels There is mild dilatation of the ascending aorta measuring 3.90 cm. Venous The inferior vena cava is normal in size and collapses greater than 50% with inspiration. Inferior vena cava flow is normal. Pericardium/Pleural The pericardium was not well visualized. Measurements 2D Linear Measurements IVSd: 0.83 0.6-0.9/0.6-1.0 cm LVIDd: 5.25 3.9-5.3/4.2-5.9 cm LVIDd Index: 2.46 2.4-3.2/2.2-3.1 cm/m2 LVIDs: 4.33 2.0-3.6 cm LVPWd: 0.93 0.7-1.1 cm LA Diam: 4.10 2.7-3.8/3.0-4.0 cm LAIDs Index: 1.92 1.5-2.3 cm/m2 LV Mass: 207.15 67-162/88-224 g LV Mass Index: 97.25 43-95/49-115 g/m2 LVOT Diam: 2.30 3.0+(-)1.3 cm 2D Systolic Function EF 4C: 54.50 >55% EF 2C: 61.80 >55% EF BiP: 58.50 >55% Mitral Valve MV Pk E: 0.82 MV Decel Time: 181.00 E'Lateral: 12.20 E'Medial: 9.55 E/E' Med: 8.50 E/E' Lat: 6.70 PHT: 53.00 MVA PHT: 4.15 Decel [place]: 4.53 Aortic Valve AoV Pk Vince: 1.11 AoV Mn Vince: 0.73 AoV VTI: 0.21 AoV Pk Grad: 5.00 Aov Mn Grad: 2.00 CORNELIA Cont.VTI: 2.90 LVOT LVOT Pk Vince: 0.74 LVOT Mn Vince: 0.49 LVOT VTI: 0.15 LVOT Pk Grad: 2.00 LVOT Mn Grad: 1.00 LVOT Diam: 2.30 LVOT Area: 4.15 Diastolic Function MV Pk E: 0.82 E'Medial: 9.55 E/E' Med: 8.50 E' Laterial: 12.20 E/E' Lat: 6.70 Right Ventricle TAPSE (mm): 18.20 TVS' Vince: 9.65 Tricuspid Valve RA Press: 3.00 Great Vessels Aorta Sinus of Valsalva: 4.07 2.0-3.[address] [place]: 3.62 1.7-3.4 cm Ao Asc: 3.90 2.1-3.4 cm Updated in Other Vendor System with Status of Final Antione Lucas MD electronically signed on 12/01/2023 3:01:20 PM with status of Final
--- NOTE | 2023-11-30 09:56 | HM_ITS ---
Conclusion: 1. Patient was monitored for total period of 2 days and 22 hours 2. Baseline was atrial fibrillation with average heart of 62 beats per minute with overall adequate rate control 3. One pause, not significant up to 3.5 seconds noted on day 2 at 06:24 probably during sleep hours 4. No patient reported markers MTDD
== END ==
LOC: HO.CARD 09:52
PROVIDERS: PCP Physician Assistant; Visit Provider Internal Medicine
DX: I48.19 Other persistent atrial fibrillation (principal)
CPT/HCPCS: 93242; 93306; Q9957

== ENCOUNTER → 2023-11-30 09:56 | Outpatient (BNV) | payer MEDICARE, SELFPAY | PROVIDERS: PCP Physician Assistant; Visit Provider Internal Medicine Cardiovascular Disease | DX: I48.91 Unspecified atrial fibrillation (principal) | CPT/HCPCS: 93244; 93306 ==

== ENCOUNTER 2023-12-01 09:03 | Outpatient (AMB) | payer MEDICARE, SELFPAY ==
[2023-12-01 09:06] VITALS: BP 118/82; BMI 31.4
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
== END 2023-12-01 09:41 | disposition home or self-care (01) ==
PROVIDERS: PCP Physician Assistant; Visit Provider Nurse Practitioner Family
DX: G44.019 Episodic cluster headache, not intractable (principal); G43.909 Migraine, unspecified, not intractable, without status migrainosus; I48.19 Other persistent atrial fibrillation
CPT/HCPCS: 99214

== ENCOUNTER → 2023-12-01 09:03 | Outpatient (BNVA) | payer MEDICARE, SELFPAY | PROVIDERS: PCP Physician Assistant; Visit Provider Nurse Practitioner Family | DX: G44.019 Episodic cluster headache, not intractable (principal); G43.909 Migraine, unspecified, not intractable, without status migrainosus; I48.19 Other persistent atrial fibrillation | CPT/HCPCS: 99212 ==

== ENCOUNTER 2023-12-07 13:08 | Outpatient (AMB) | payer MEDICARE, SELFPAY ==
[2023-12-07 13:15] VITALS: BP 100/74; PULSE 65; BMI 31.4
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
== END 2023-12-07 13:35 | disposition home or self-care (01) ==
PROVIDERS: PCP Physician Assistant; Visit Provider Internal Medicine
DX: I48.19 Other persistent atrial fibrillation (principal); Z98.890 Other specified postprocedural states; Z86.79 Personal history of other diseases of the circulatory system; I42.8 Other cardiomyopathies
CPT/HCPCS: 93010; 99214

== ENCOUNTER → 2023-12-07 13:08 | Outpatient (BNVA) | payer MEDICARE, SELFPAY | PROVIDERS: PCP Physician Assistant; Visit Provider Internal Medicine | DX: I48.19 Other persistent atrial fibrillation (principal); I42.8 Other cardiomyopathies; Z98.890 Other specified postprocedural states; Z86.79 Personal history of other diseases of the circulatory system | CPT/HCPCS: 93005; 99212 ==

== ENCOUNTER 2023-12-13 15:16 | Outpatient (REF) | payer MEDICARE, SELFPAY ==
[2023-12-13 16:13] LABS: Digoxin 0.4 ng/mL (0.8-2.0)
== END 2023-12-13 15:17 | disposition home or self-care (01) ==
LOC: HO.LAB 15:16
PROVIDERS: PCP Physician Assistant; Visit Provider Internal Medicine
DX: I48.19 Other persistent atrial fibrillation (principal)
CPT/HCPCS: 36415; 80162

== ENCOUNTER 2024-02-08 11:39 | Outpatient (AMB) | payer MEDICARE, SELFPAY ==
[2024-02-08 11:50] VITALS: BP 102/76; PULSE 82; O2SAT 97; BMI 31.8
--- NOTE | 2024-02-08 11:50 | A.OFFPC_ITS ---
Vital Signs 02/08/24 11:50 Height 5 ft 11 in Weight 228 lb 6 oz BMI 31.8 BP 102/76 Blood Pressure Location Rt brachial Position Sitting Pulse 82 Pulse Source Pulse Oximeter Pulse Oximetry (%) 97 Oxygen Delivery Method Room Air Intake Visit Reasons: 6mof\u Hoof And Shoe Inspector Required: No Accompanied by: Self / Same As Patient Allergies No Known Allergies [No Known Allergies*] Allergy (Verified 02/08/24 11:51) Medication List - Last Reconciled 02/08/24 by Jose Campuzano PA-C acetaminophen 500 mg PO Q6H PRN 90 days apixaban (Eliquis) 5 mg PO BID 90 days baclofen 20 mg PO DAILY 30 days digoxin 125 mcg PO DAILY diltiazem HCl CD 120 mg PO DAILY galcanezumab-gnlm (Emgality) 300 mg subcut .monthly PRN lisinopril 10 mg PO DAILY 90 days magnesium oxide 250 mg PO BID 90 days metoprolol succinate ER 200 mg PO DAILY 90 days Oxygen Home Use 12-15 lpm via non-rebreather mask x's 15-20 minutes prn Cluster attack. M tank and E tanks sumatriptan succinate 100 mg PO Q2H PRN 30 days sumatriptan succinate 6 mg (0.5 mL) subcut ONCE 30 days tramadol 50 mg PO BID PRN 15 days Tobacco use date assessed: 08/03/23 Dental Screening Dental Screen Date: 08/03/23 HPI 6mof\u HPI Details Patient is a 63-year-old male here today for follow-up visit. .? Patient has a past medical history si gnificant for paroxysmal AFib, PE, hypertension, tobacco use disorder, severe Right hip osteoarthritis status post arthroplasty. . Concerns--> still has hip he pain to which he use his tramadol for an as needed basis. Has been better since he has been retired and not has physically active. .. AFIB: Followed by pocket machine operator here in [place]. Has been started on diltiazem. He continues on Eliquis without any overt signs of bleeding. He otherwise denies any overt signs of bleeding Interval history---> Has had a cardioablation 2016 and has been stable with rate control and anticoagulation.? .. Tobacco dependency: He has reduced his smoking to 5 cigarettes per day. She unfortunately has still been having hard time completely quitting. Declines my offer to start nicotine replacement at this time. .. Cluster Migraines: Has now established with neurology. Was prescribed emgality which has been helpful. Also does have oxygen at home for his acute cluster migraine attacks. He reports his migraines have been much better and much less frequent. He does have Triptan available to him. He does report tramadol is helpful during times of migraine attacks. .. HTN: seldomly checks BP at home.? He reports his blood pressures have been stable on current dose of lisinopril and metoprolol [facility] Medical History (Updated 02/08/24 @ 12:03 by Jose Campuzano PA-C) Worsening headaches Personal history of nicotine dependence History of pulmonary embolism (~2017) HTN (hypertension) Osteoarthritis of right hip Surgical History S/P ablation of atrial flutter History of right hip replacement History of cardioversion Family History Father Family history of dementia Mother Breast cancer Social History Housing: Apartment Alcohol intake: current Alcohol intake frequency: a few times a week Alcohol type: beer Patient Tobacco Use Status: Current everyday Tobacco user Tobacco use type: Cigarette Cigarettes Per Day: 5 e-Cigarette/Vaping Use: Never Used Second Hand Smoke Exposure: No service: No Current occupational status: employed Current occupation: [employer] Current occupational exposures/hazards: No Cognitive needs: No Hearing needs: No Vision needs: Yes Questionnaire Thrive Questionnaire Date Thrive assessed: 08/03/23 ZAC-7 AMB Questionnaire ZAC-7 Date ZAC - 7 assessed: 08/03/23 Source: Developed by Drs. Drew Trent, Skylar Fitzgerald, Moses Fields and colleagues, with an educational richie from [employer]. Review of Systems Const Denies headache(s) Eyes Denies loss of vision ENT Denies vertigo, Denies dizziness, Denies headache(s) and Denies sore throat Card Denies chest pain, Denies leg edema and Denies lightheadedness Resp Denies cough, Denies hemoptysis and Denies wheezing GI Denies abdominal pain, Denies melena, Denies constipation, Denies diarrhea and Denies vomiting Denies dysuria, Denies urinary frequency and Denies urinary urgency Musc Denies arthralgias, Denies joint swelling, Denies numbness and Denies tingling Neuro Denies Abnormal speech present, Denies behavioral changes, Denies vertigo, Denies dizziness, Denies headache(s), Denies loss of vision, Denies memory loss, Denies numbness and Denies tingling Psych Denies anxiety, Denies behavioral changes, Denies depression, Denies memory loss and Denies panic attacks Laureano/Lymph Denies easy bleeding and Denies easy bruising Aller/Immun Denies wheezing Physical exam (Primary Care) Vital Signs: Last Vital Signs Pulse 82 02/08/24 11:50 BP 102/76 02/08/24 11:50 Pulse Ox 97 02/08/24 11:50 Oxygen Delivery Method Room Air 02/08/24 11:50 BMI result Body Mass Index 31.8 Tobacco/Smoking Status: Tobacco use Status Tobacco use date assessed 08/03/23 02/08/24 11:51 Patient Tobacco Use Status Current everyday Tobacco 02/08/24 11:51 Tobacco use type Cigarette 02/08/24 11:51 e-Cigarette/Vaping Use Never Used 02/08/24 11:51 Are you ready to quit: No Tobacco cessation counseling provided: Yes Items discussed: Nicotine replacement Relapse Prevention: discussed the importance of a supportive environment, discussed negative mood or depression after quitting, weight gain after smoking is common and discussed dietary, exercise and/or lifestyle changes Number of minutes spent counselin CPT code: 34523 - 4-10 Minutes Thrive Assessment: Date of Thrive Assessment Date Thrive assessed 08/03/23 02/08/24 11:51 Const General: healthy appearing, no acute distress, alert and awake Nutritional Appearance: well nourished Orientation/consciousness: oriented to person, oriented to place and oriented to time HENMT Ears: TM's normal bilaterally General nose exam: Normal nasal mucous membranes and turbinates present Eyes Conjunctivae: conjunctivae normal Sclerae: sclerae normal Pupils: Equal, round and reactive pupils present Neck Neck: Yes no lymphadenopathy and Yes no JVD Thyroid: Thyroid normal Carotids: no bruits Resp Effort & Inspection: normal respiratory effort and not tachypneic Auscultation: no crackles, no rales, no rhonchi and no wheezes Cardio Rate: regular rate Rhythm: regular rhythm Heart sounds: no murmurs and normal S1 and S2 GI Palpation (GI): Soft to palpation, nontender, no hepatomegaly and no sple nomegaly Auscultation: normal bowel sounds Skin General skin exam: no rashes or lesions noted and dry skin Neuro General: oriented to person, oriented to place and oriented to time Cranial nerves: Yes Equal, round and reactive pupils present Speech: No Abnormal speech present Gait exam (Neuro): Normal gait present Motor exam (neuro): no tremor noted Extrem Right upper extremity: full ROM Left upper extremity: full ROM Right lower extremity: full ROM; no edema Left lower extremity: full ROM; no edema Psych Mental Status: mental status grossly normal Speech and movement: Normal speech and movement present Affect: normal affect Attitude: cooperative Thought process: Normal thought process present Office Procedures Flu Questionnaire Does the patient have a severe egg allergy?: No Does the patient have severe life threatening allergies?: No Does the patient have a fever or illness today?: No Has the patient ever had Guillain-[place] Syndrome?: No Has the patient ever had any past reaction to a flu shot?: No Immunizations Fluarix Triv [id number] (PF) 45 mcg (15 mcg x 3)/0.5 mL IM syringe Performing Provider: Jose Campuzano PA-C [facility] Administered by: KENDRA Bucio on 02/08/24 11:53 Dose Route Admin Location Dispensed Lot Number Expiration Date [facility] Top Spotter 0.5 mL IM Right Deltoid 0.5 mL [id number] 09/11/24 [id number] [employer] VIS Given Date VIS Provided VIS Publication Date 02/08/24 Single Vaccine 20 Eligibility Eligibility Date Funding Source Not [facility] Eligible 02/08/24 Private Coding Level of Care Code Est Pt Level 4 (71764) Diagnoses Impaired glucose metabolism R73.09 Persistent atrial fibrillation I48.19 Primary hypertension I10 Hypertension type: primary hypertension Smoker F17.200 Migraine without status migrainosus, not intractable, unspecified migraine type G43.909 Migraine type: unspecified Status migrainosus presence: without status migrainosus Intractability: not intractable Additional Codes Vital Signs *Quality* - CPT code: 08948 - 4-10 Minutes ([id number]) Assessment & Plan Assessment & Plan (1) Impaired glucose metabolism: Code(s): R73.09 - Other abnormal glucose Category: Medical Plan: Patient has been working on lifestyle and dietary modifications to reduce his blood sugars. Advised to get fasting labs done DAT. (2) Persistent atrial fibrillation: Code(s): I48.19 - Other persistent atrial fibrillation Category: Medical Plan: Continues to follow cardiology. He denies any heart palpitations. He does continue with diltiazem, digoxin and metoprolol for rate control and Eliquis for anticoagulation. Denies any overt signs of bleeding. (3) HTN (hypertension): Code(s): I10 - Essential (primary) hypertension Category: Medical Qualifiers: Hypertension type: primary hypertension Qualified Code(s): I10 - Essential (primary) hypertension Plan: Patient's blood pressure acceptable today in office. Will continue on his current dose of antihypertensive medication. Goal blood pressures to remain below 140/90 (4) Smoker: Code(s): F17.200 - Nicotine dependence, unspecified, uncomplicated Category: Social Hx Plan: Patient does understand he needs to quit smoking. He only smokes 4-5 cigarettes per day. Has tried nicotine patches and gum in the past though not effective. He is not interested in any medication to help him quit smoking. (5) Migraine headache: Code(s): G43.909 - Migraine, unspecified, not intractable, without status migrainosus Category: Medical Qualifiers: Migraine type: unspecified Status migrainosus presence: without status migrainosus Intractability: not intractable Qualified Code(s): G43.909 - Migraine, unspecified, not intractable, without status migrainosus Plan: Patient reports much less frequent and much less severe migraines. Does have Triptan available to him for migraine . Orders: Orders Comprehensive [place]. Panel Fast Today I10 - Essential (primary) hypertension Complete Blood Count no Diff Today I10 - Essential (primary) hypertension Prostate Specific Antigen Scr Today I10 - Essential (primary) hypertension, Z12.5 - Encounter for screening for malignant neoplasm of prostate Hemoglobin A1c Today R73.09 - Other abnormal glucose Microalbumin, Random (w Creat) Today I10 - Essential (primary) hypertension Influenza [id number] Immunization Today Z23 - Encounter for immunization Medications: Refilled baclofen 20 mg PO DAILY 30 days 30 tabs 2RF M16.11 - Unilateral primary osteoarthritis, right hip tramadol 50 mg PO BID 15 days PRN 30 tabs 0RF pain M16.11 - Unilateral primary osteoarthritis, right hip
== END 2024-02-08 12:02 | disposition home or self-care (01) ==
PROVIDERS: PCP Physician Assistant; Visit Provider Physician Assistant
DX: R73.09 Other abnormal glucose (principal); I48.19 Other persistent atrial fibrillation; I10 Essential (primary) hypertension; F17.200 Nicotine dependence, unspecified, uncomplicated; G43.909 Migraine, unspecified, not intractable, without status migrainosus; Z23 Encounter for immunization

== ENCOUNTER → 2024-02-08 11:39 | Outpatient (BNVA) | payer MEDICARE, SELFPAY | PROVIDERS: PCP Physician Assistant; Visit Provider Physician Assistant | DX: Z23 Encounter for immunization (principal); R73.09 Other abnormal glucose; I48.19 Other persistent atrial fibrillation; I10 Essential (primary) hypertension; G43.909 Migraine, unspecified, not intractable, without status migrainosus; F17.200 Nicotine dependence, unspecified, uncomplicated; Z71.6 Tobacco abuse counseling | CPT/HCPCS: 90471; 90656; 99212 ==

== ENCOUNTER 2024-06-06 10:36 | Outpatient (AMB) | payer MEDICARE, SELFPAY ==
[2024-06-06 10:47] VITALS: BP 110/62; PULSE 87; BMI 32.2
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
== END 2024-06-06 11:01 | disposition home or self-care (01) ==
LOC: HO.HCS 10:36
PROVIDERS: PCP Physician Assistant; Visit Provider Internal Medicine
DX: I48.19 Other persistent atrial fibrillation (principal); Z98.890 Other specified postprocedural states; Z86.79 Personal history of other diseases of the circulatory system; I42.8 Other cardiomyopathies
CPT/HCPCS: 99214; G2211

== ENCOUNTER → 2024-06-06 10:36 | Outpatient (BNVA) | payer MEDICARE, SELFPAY | PROVIDERS: PCP Physician Assistant; Visit Provider Internal Medicine | DX: I48.19 Other persistent atrial fibrillation (principal); I42.8 Other cardiomyopathies; Z98.890 Other specified postprocedural states; Z86.79 Personal history of other diseases of the circulatory system | CPT/HCPCS: 99212 ==

== ENCOUNTER 2024-06-13 11:07 | Outpatient (AMB) | payer MEDICARE, SELFPAY ==
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
[2024-06-13 11:27] VITALS: BMI 32.1
== END 2024-06-13 11:46 | disposition home or self-care (01) ==
LOC: HO.HSMS 11:07
PROVIDERS: PCP Physician Assistant; Visit Provider Nurse Practitioner Family
DX: G44.019 Episodic cluster headache, not intractable (principal); G43.909 Migraine, unspecified, not intractable, without status migrainosus; I48.19 Other persistent atrial fibrillation
CPT/HCPCS: 99214

== ENCOUNTER → 2024-06-13 11:07 | Outpatient (BNVA) | payer MEDICARE, SELFPAY | PROVIDERS: PCP Physician Assistant; Visit Provider Nurse Practitioner Family | DX: G44.019 Episodic cluster headache, not intractable (principal); G43.909 Migraine, unspecified, not intractable, without status migrainosus; I48.19 Other persistent atrial fibrillation | CPT/HCPCS: 99212 ==

== ENCOUNTER 2024-08-08 11:19 | Outpatient (AMB) | payer MEDICARE, SELFPAY ==
[2024-08-08 11:32] VITALS: BP 128/68; PULSE 106; TEMP 36.2; O2SAT 95; BMI 31.6
--- NOTE | 2024-08-08 11:32 | A.OFFVIS_ITS ---
Intake Vital Signs 08/08/24 11:32 Height 5 ft 11 in Weight 226 lb 4 oz BMI 31.6 BP 128/68 Blood Pressure Location Lt brachial Position Sitting Pulse 106 H Pulse Source Pulse Oximeter Temp 97.1 F Temp Source Temporal Artery Scan Pulse Oximetry (%) 95 Oxygen Delivery Method Room Air Intake Visit Reasons: AWV [employer] Required: No Accompanied by: Self / Same As Patient Allergies No Known Allergies [No Known Allergies*] Allergy (Verified 08/08/24 11:44) Medication List - Last Reconciled 08/08/24 by Jose Campuzano PA-C acetaminophen 500 mg PO Q6H PRN 90 days apixaban (Eliquis) 5 mg PO BID 90 days baclofen 20 mg PO DAILY 30 days digoxin 125 mcg PO DAILY diltiazem HCl CD 120 mg PO DAILY galcanezumab-gnlm (Emgality) 300 mg subcut .monthly PRN lisinopril 10 mg PO DAILY 90 days magnesium oxide 250 mg PO BID 90 days metoprolol succinate ER 200 mg PO DAILY 90 days Oxygen Home Use 12-15 lpm via non-rebreather mask x's 15-20 minutes prn Cluster attack. M tank and E tanks sumatriptan succinate 100 mg PO Q2H PRN 30 days sumatriptan succinate 6 mg (0.5 mL) subcut ONCE 30 days tramadol 50 mg PO BID PRN 15 days HPI AWV HPI Details Patient is a 63-year-old male here today for annual wellness visit .? Patient has a past medical history si gnificant for paroxysmal AFib, PE, hypertension, tobacco use disorder, severe Right hip osteoarthritis status post arthroplasty.2 Concern--> having right-sided sciatica that has been bothering him. He is open to the idea of starting physical therapy. Does use muscle relaxer and tramadol from time to time with good pain relief. Otherwise today we talked about his end of life planning and his comprehensive care plan which was scanned into patient's documents. . Colorectal cancer screening: Patient willing to do Cologuard Vaccine: Up-to-date with COVID vaccine, flu vaccine, pneumonia vaccine, considering shingles vaccine HPI Comments History of Present Illness Details reviewed past medical history- yes reviewed surgical / hospitalization history- yes reviewed current medications- yes reviewed family history- yes home safety throw rugs? grab bars? raised toilet seat? working smoke detectors? activities of daily living difficulty bathing or showering? difficulty dressing? difficulty using the toilet? difficulty getting in and out of bed? difficulty walking? receives help from other person's with any of the above tasks? instrumental activities of daily living uses telephone - gets to place out of walking distance- go shopping for groceries- repairs own meals- does own minor home maintenance- does own laundry- does own housework- manages own money- currently takes medication- end of life planning discussed advanced directives- yes advanced directives on file? discussed wishes expressed in advanced directives. fall risk have you had any falls with injuries in the past year? have you had 2 or more falls in the past year? fall risk assessment: [facility] Medical History Worsening headaches Personal history of nicotine dependence History of pulmonary embolism (~2017) HTN (hypertension) Osteoarthritis of right hip Surgical History S/P ablation of atrial flutter History of right hip replacement History of cardioversion Family History Father Family history of dementia Mother Breast cancer Social History Housing: Apartment Alcohol intake: current Alcohol intake frequency: a few times a week Alcohol type: beer Patient Tobacco Use Status: Current everyday Tobacco user Tobacco use type: Cigarette Cigarettes Per Day: 5 e-Cigarette/Vaping Use: Never Used Second Hand Smoke Exposure: No service: No Current occupational status: retired Current occupational exposures/hazards: No Cognitive needs: No Hearing needs: No Vision needs: Yes Questionnaire Medicare Wellness Checkup [age] What gender do you identify with?: male During the past 4 weeks, how much have you been bothered by emotional problems such as feeling anxious, depressed, irritable, sad or downhearted, and blue?: not at all During the past 4 weeks, has your physical & emotional health limited your social activities with family, friends, neighbors, or groups?: not at all During the past 4 weeks, how much bodily pain have you generally had?: moderate pain During the past 4 weeks, was someone available to help you if you needed & wanted help?: yes, as much as I wanted During the past 4 weeks, what was the hardest physical activity you could do for at least 2 minutes?: moderate Can you get to places out of walking distance without help? (For eg., can you travel alone on buses, taxis or drive your car?): Yes Can you go shopping for groceries or clothes without someone's help?: Yes Can you prepare your own meals?: Yes Can you do your housework without help?: Yes Because of any health problems, do you need the help of another person with your personal care needs such as eating, bathing, dressing or getting around the house?: No Can you handle your own money without help?: Yes During the past 4 weeks, how would you rate your health in general?: good During the past 4 weeks how have things been going for you?: pretty well Are you having difficulties driving your car?: no Do you always fasten your seat belt when you are in a car?: yes, sometimes During past 4 weeks, have you been bothered by the following: never: Falling or dizzy when standing up, Trouble eating well?, Teeth or denture problems? and Problems using the telephone? and seldom: Sexual problems? and Tiredness or fatigue? Have you fallen 2 or more times in the past year?: No Are you afraid of falling?: No Are you a smoker?: yes, and I might quit During the past 4 weeks, how many drinks of wine, beer, or other alcoholic beverages did you have?: 2-5 drinks per week Do you exercise for about 20 minutes 3 or more times a week?: no, I usually do not exercise this much Have you been given information to help with the following?: no: Hazards in your house that might hurt you? and no: Keeping track of your medications? How often do you have trouble taking medicines the way you have been told to take them?: I always take medicine as prescribed How confident are you that you can control & manage most of your health problems?: very confident What is your race?: White Mini Mental State Exam (MMSE) Orientation What is the (year) (season) (date) (day) (month)?: year Where are we (state) (county) (town or city) (hospital) (floor)?: town or city Attention & Calculation (CHOOSE ONE) Spell WORLD backwards (DLROW): 2 letters Score Score: 4 Activity of Daily Living Bathing - sponge bath, tub bath or shower: receives no assistance (gets in/out by self, if usual bathing means Dressing - getting clothes from closets & drawers, including inner/outer garments & fasteners.: gets clothes & gets completely dressed without help Toileting - going to the 'toilet room' for urine/bowel elimination & cleaning self/arranging clothes: goes to toilet room, cleans self, arranges clothes without help Transfer: moves in & out of bed and chair without help (may use support object) Continence: controls urination/bowel movements completely by self Feeding: feeds self without help Total Score: 0 Information obtained from: patient Using telephone: independent Traveling: independent Shopping: independent Preparing meals: independent Housework: independent Taking medicine: independent Managing money: independent PHQ-9 Over the last 2 weeks, how often have you been bothered by any of the following problems? 1. Little interest or pleasure in doing things: not at all 2. Feeling down, depressed, or hopeless: not at all 3. Trouble falling or staying asleep, or sleeping too much: several days 4. Feeling tired or having little energy: not at all 5. Poor appetite or overeating: not at all 6. Feeling bad about yourself - or that you are a failure or have let yourself or your family down: not at all 7. Trouble concentrating on things, such as reading the newspaper or watching television: not at all 8. Moving or speaking so slowly that other people could have noticed. Or the opposite - being so fidgety or restless that you have been moving around a lot more than usual: not at all 9. Thoughts that you would be better off or of hurting yourself in some way: not at all Total score: 1 Depression Screening Interpretation: Negative Depression Screening Done: Yes 29725 - PHQ-9 Billing: Yes Source: Developed by Drs. Drew Trent, Skylar Fitzgerald, Moses Fields and colleagues, with an educational richie from [employer]. Physical Exam Vital Signs: Last Vital Signs Temp 97.1 F 08/08/24 11:32 Pulse 106 H 08/08/24 11:32 BP 128/68 08/08/24 11:32 Pulse Ox 95 08/08/24 11:32 Oxygen Delivery Method Room Air 08/08/24 11:32 BMI result Body Mass Index 31.6 HEENT Other: hearing screening whisper test- pass Eyes Other: vision screening- using corrective lenses - OS OD OU Other: urinary incontinence? no Neuro Other: balance Romberg- normal tandem walk test- able walk-in turned test- able rise from sit to stand- within 3 seconds Assessment & Plan Assessment & Plan (1) Annual physical exam: Code(s): Z00.00 - Encounter for general adult medical examination without abnormal findings Plan: As per [facility] (2) Colon cancer screening: Code(s): Z12.11 - Encounter for screening for malignant neoplasm of colon Plan: Patient willing to do Cologuard (3) Sciatica of right side: Code(s): M54.31 - Sciatica, right side Plan: Patient willing to do physical therapy for his right-sided sciatica Orders: Orders PT Evaluation and Treatment Today M51.9 - Unspecified thoracic, thoracolumbar and lumbosacral intervertebral disc disorder, M54.31 - Sciatica, right side Referrals Cologuard Test Z12.11 - Encounter for screening for malignant neoplasm of colon Medications: Refilled tramadol 50 mg PO BID PRN 30 tabs 2RF pain 15 days M16.11 - Unilateral primary osteoarthritis, right hip Quality Reporting (2019) Depression/Bipolar (159/160/161/177) PHQ-9: Total score: 1 Coding Level of Care Code Medicare First (G0438) Est Pt Level 3 (06552) Diagnoses Annual physical exam Z00.00 Colon cancer screening Z12.11 Sciatica of right side M54.31 CPT Codes Advance Care Planning - Time spent: 1-15 minutes, not on file ([id number]) Additional Codes PHQ-9 - 47206 - PHQ-9 Billing: Yes ([id number]) Advance Care Planning Advance Care Planning discussion: Exists, not on file Date of discussion: 08/08/24 Forms completed: MOLST Time spent: 1-15 minutes, not on file Actual minutes spent: 2
== END 2024-08-08 12:00 | disposition home or self-care (01) ==
LOC: HO.HMCH 11:20
PROVIDERS: PCP Physician Assistant; Visit Provider Physician Assistant
DX: Z00.00 Encounter for general adult medical examination without abnormal findings (principal); M54.31 Sciatica, right side; Z12.11 Encounter for screening for malignant neoplasm of colon

== ENCOUNTER → 2024-08-08 11:19 | Outpatient (BNVA) | payer MEDICARE, SELFPAY | PROVIDERS: PCP Physician Assistant; Visit Provider Physician Assistant | DX: Z00.00 Encounter for general adult medical examination without abnormal findings (principal); I10 Essential (primary) hypertension; M54.31 Sciatica, right side; M16.11 Unilateral primary osteoarthritis, right hip; M51.9 Unspecified thoracic, thoracolumbar and lumbosacral intervertebral disc disorder; F17.200 Nicotine dependence, unspecified, uncomplicated; Z71.6 Tobacco abuse counseling | CPT/HCPCS: 96127; 99212 ==

== ENCOUNTER 2024-12-11 12:54 | Outpatient (AMB) | payer MEDICARE, SELFPAY ==
[2024-12-11 12:58] VITALS: BP 114/78; PULSE 107; BMI 31.1
--- NOTE | 2024-12-11 12:58 | A.OFFVIS_ITS ---
Vital Signs 12/11/24 12:58 Height 5 ft 11 in Weight 222 lb 10.67 oz BMI 31.1 BP 114/78 Blood Pressure Location Lt brachial Position Sitting Pulse 107 H Pulse Source Monitor Intake Visit Reasons: 6m follow up Accompanied by: Self / Same As Patient Allergies No Known Allergies (No Known Allergies*) Allergy (Verified 12/11/24 13:01) Medication List - Last Reconciled 12/11/24 by Sanjay Marcos MD acetaminophen 500 mg PO Q6H PRN 90 days apixaban (Eliquis) 5 mg PO BID 90 days baclofen 20 mg PO DAILY 30 days digoxin 125 mcg PO DAILY diltiazem HCl CD 120 mg PO DAILY galcanezumab-gnlm (Emgality) 300 mg subcut .monthly PRN lisinopril 10 mg PO DAILY 90 days metoprolol succinate ER 200 mg PO DAILY 90 days Oxygen Home Use 12-15 lpm via non-rebreather mask x's 15-20 minutes prn Cluster attack. M tank and E tanks sumatriptan succinate 100 mg PO Q2H PRN 30 days sumatriptan succinate 6 mg (0.5 mL) subcut ONCE 30 days tramadol 50 mg PO BID PRN 15 days HPI Comments Details: Nic returns for follow-up of atrial fibrillation. Previously going to [facility], but not regular. It seems that he has had atrial fibrillation for the last few years. Per documentation, he underwent flutter ablation in 2017. Then he had an episode of submassive pulmonary embolism in 2019. Then atrial fibrillation with rapid rates, as well as severe LV dysfunction. It seems he underwent CASANDRA but that showed dense smoke in the left atrial appendage and hence he did undergo any cardioversion. Subsequently, patient states he really did not have any follow-up for a while till he came here. Any case, it seems he probably has been in atrial fibrillation for the last 3-4 years or so. These days he is just on rate control therapy only. He states he actually feels quite good and has absolutely no concerns. He denies any exertional or resting cardiac symptoms. [facility] Medical History Worsening headaches Personal history of nicotine dependence History of pulmonary embolism (~2017) HTN (hypertension) Osteoarthritis of right hip Surgical History S/P ablation of atrial flutter History of right hip replacement History of cardioversion Family History Father Family history of dementia Mother Breast cancer Social History Housing: Apartment Alcohol intake: current Alcohol intake frequency: a few times a week Alcohol type: beer Patient Tobacco Use Status: Current everyday Tobacco user Tobacco use type: Cigarette Cigarettes Per Day: 5 e-Cigarette/Vaping Use: Never Used Second Hand Smoke Exposure: No service: No Current occupational status: retired Current occupational exposures/hazards: No Cognitive needs: No Hearing needs: No Vision needs: Yes Review of Systems Const Denies daytime sleepiness, Denies difficulty sleeping, Denies snoring, Denies stops breathing during sleep and Denies weakness Card Denies chest pain, Denies rapid heart rate, Denies irregular heart rhythm, Denies claudication, Denies leg edema, Denies lightheadedness, Denies palpitations, Denies dyspnea, Denies dyspnea on exertion, Denies orthopnea, Denies paroxysmal nocturnal dyspnea and Denies slow heart rate Resp Denies cough, Denies dyspnea, Denies dyspnea on exertion and Denies snoring GI Reports no additional complaints, Denies hematochezia, Denies change in stool character and Denies dyspepsia Musc Denies abnormal gait, Denies muscle weakness and Denies numbness Neuro Denies abnormal gait, Denies numbness and Denies weakness Endo Denies palpitations Physical Exam Vital Signs: Last Vital Signs Pulse 107 H 12/11/24 12:58 BP 114/78 12/11/24 12:58 BMI result Body Mass Index 31.1 Const General: comfortable and no acute distress Orientation/consciousness: patient oriented x3 HEENT Other: Unremarkable Head: Yes normal to inspection Neck Neck: Yes normal visual inspection Chest Chest palpation & inspection: normal inspection of the chest Resp Auscultation: clear to auscultation bilaterally Cardio Palpation: normal PMI Heart sounds: S1 normal heart sound present, S2 normal heart sound present, no gallops, no murmurs and no rubs GI Palpation (GI): Soft to palpation Back/Spine/Pelvis Other: unremarkable Skin General skin exam: no rashes or lesions noted Neuro General: patient oriented x3 Extrem General: Yes normal to inspection Psych Mental Status: mental status grossly normal Office Procedures EKG Details: EKG with atrial fibrillation at 01:07/Min; leftward axis; incomplete right bundl e-branch block and nonspecific ST-T changes. [id number], Complete Assessment & Plan Assessment & Plan (1) Persistent atrial fibrillation: Code(s): I48.19 - Other persistent atrial fibrillation Category: Medical (2) S/P ablation of atrial flutter: Code(s): Z98.890 - Other specified postprocedural states; Z86.79 - Personal history of other diseases of the circulatory system Category: Surgical (3) Cardiomyopathy: Code(s): I42.9 - Cardiomyopathy, unspecified Category: Medical Qualifiers: Cardiomyopathy type: other Qualified Code(s): I42.8 - Other cardio myopathies Plan [place] [facility] [place] LVEF has been as low as 15-25%. In the most recent echocardiogram in our system, normal LVEF, 55-60%. Holter confirms persistent atrial fibrillation. For medications, he remains on diltiazem, metoprolol, digoxin. Remains on anticoagulation without any issues. Last digoxin level noted 0.4. We have asked him many times to do his labs as they have not been done in a while. Again re-emphasized the importance of doing this especially as he is on many medications including anticoagulation. He agrees to do the pending labs which include CBC, metabolic panel, digoxin as ordered. We will see him back in about 6 months' time. We will recheck echocardiogram/Holter at that time. If any concerning symptoms in the interim, he will contact us. Discussion Notes I discussed with the patient the importance of completing the blood work to monitor the effects of his medications, particularly Digoxin and blood thinners. We also talked about the need for a follow-up echocardiogram and Holter monitor in six months to ensure his cardiac health is stable. I advised moderation in alcohol consumption and encouraged smoking cessation to improve cardiovascular health. Patient was informed and verbally consented to the use of an ambient scribe for clinic note documentation during this visit. Orders: Orders CA echo transthoracic complete 6 Months I42.8 - Other cardiomyopathies ECG 3 day holter monitor 6 Months I48.19 - Other persistent atrial fibrillation, R00.2 - Palpitations Patient Instructions: - Complete blood work before taking morning medications. - Follow up in six months for an echocardiogram and Holter monitor. - Consider smoking cessation to improve heart health. - Limit alcohol intake to maintain cardiovascular health. Coding Level of Care Code Est Pt Level 4 (39534) Complex EM visit Add On G2211 Diagnoses Persistent atrial fibrillation I48.19 S/P ablation of atrial flutter Z98.890; Z86.79 Other cardiomyopathy I42.8 Cardiomyopathy type: other CPT Codes EKG - CPT: 14416-[id number], Complete ([id number])
== END 2024-12-11 13:17 | disposition home or self-care (01) ==
LOC: HO.HCS 12:55
PROVIDERS: PCP Physician Assistant; Visit Provider Internal Medicine
DX: I48.19 Other persistent atrial fibrillation (principal); Z98.890 Other specified postprocedural states; Z86.79 Personal history of other diseases of the circulatory system; I42.8 Other cardiomyopathies
CPT/HCPCS: 93010; 99214; G2211

== ENCOUNTER → 2024-12-11 12:54 | Outpatient (BNVA) | payer MEDICARE, SELFPAY | PROVIDERS: PCP Physician Assistant; Visit Provider Internal Medicine | DX: R00.2 Palpitations (principal); I48.19 Other persistent atrial fibrillation; Z86.79 Personal history of other diseases of the circulatory system; I42.8 Other cardiomyopathies | CPT/HCPCS: 93005; 99212 ==